=== PATIENT | male | born 1970 | race African-American/Black ===

== ENCOUNTER 2017-01-25 19:52 | Inpatient (IN) | payer OTHER ==
[2017-01-25 23:11] VITALS: BMI 39.5
--- NOTE | 2017-01-25 23:26 | HP ---
Admission ROS [facility] Chief Complaint: I WANT TO GO TO REHAB Allergies/Adverse Reactions: Allergies Allergy/AdvReac Type Severity Reaction Status Date / Time No Known Allergies Allergy Verified 01/28/12 15:56 History of Present Illness: 46 YEARS OLD MALE WITH LONG HISTORY OF ALCOHOL NICOTINE DEPENDENCE HAS HYPERTENSION AND ASTHMA DENIES MENTAL ILLNESS IS ADMITTED TO REHAB Exam Limitations: No Limitations - Ebola screening Have you traveled outside of the country in the last 21 days: No Have you had contact with anyone from an Ebola affected area: No Have you been sick,other than usual withdrawal symptoms: No Do you have a fever: No - Review of Systems Constitutional: Weight Stable EENT: reports: No Symptoms Reported Respiratory: reports: Cough Cardiac: reports: No Symptoms Reported GI: reports: No Symptoms Reported : reports: No Symptoms Reported Musculoskeletal: reports: No Symptoms Reported Integumentary: reports: No Symptoms Reported Neuro: reports: No Symptoms reported Endocrine: reports: No Symptoms Reported Hematology: reports: No Symptoms Reported Psychiatric: reports: Judgement Intact, Mood/Affect Appropiate, Orientated x3 Other Systems: Reviewed and Negative Patient History - Patient Medical History Hx Anemia: No Hx Asthma: Yes (on medication) Hx Chronic Obstructive Pulmonary Disease (COPD): No Hx Cancer: No Hx Cardiac Disorders: No Hx Congestive Heart Failure: No Hx Hypertension: No Hx Hypercholesterolemia: No Hx Pacemaker: No HX Cerebrovascular Accident: No Hx Seizures: No Hx Dementia: No Hx Diabetes: No Hx Gastrointestinal Disorders: No (gerd) Hx Liver Disease: No Hx Genitourinary Disorders: No Hx Sexually Transmitted Disorders: No Hx Renal Disease (ESRD): No Hx Thyroid Disease: No Hx Human Immunodeficiency Virus (HIV): No Hx Hepatitis C: No Hx Depression: No (no med) Hx Suicide Attempt: No Hx Bipolar Disorder: No Hx Schizophrenia: No - Patient Surgical History Past Surgical History: No - PPD History Previous Implant?: Yes Documented Results: Negative w/proof Implanted On Prior [facility] Admission?: Yes Date: 01/30/12 - Smoking Cessation Smoking history: Current every day smoker Have you smoked in the past 12 months: Yes Aproximately how many cigarettes per day: 7 Cigars Per Day: 0 Hx Chewing Tobacco Use: No Initiated information on smoking cessation: Yes 'Breaking Loose' booklet given: 01/25/17 - Substance & Tx. History Hx Alcohol Use: Yes Hx Substance Use: No Substance Use Type: Alcohol Hx Substance Use Treatment: Yes (01/18/17 [facility]) - Substances Abused Alcohol Route: Oral Frequency: Daily Amount used: [id number] Age of first use: 12 Date of Last Use: 01/18/17 Family Disease History - Family Disease History Family Disease History: Heart Disease: Father, Mother Other Family History: ONLY CHILD Admission Physical Exam [facility] - Vital Signs Vital Signs: Vital Signs - 24 hr 01/25/17 23:09 Temperature 97.4 F L Pulse Rate 102 H Respiratory 18 Rate Blood Pressure 152/108 - Physical General Appearance: Yes: No Apparent Distress, Appropriately Dressed, Obese HEENTM: Yes: Hearing grossly Normal, Normal ENT Inspection, Normocephalic, Normal Voice Respiratory: Yes: Chest Non-Tender, Lungs Clear, Normal Breath Sounds, No Respiratory Distress, No Accessory Muscle Use Neck: Yes: Supple, Trachea in good position Breast: Yes: Breasts Symetrical Cardiology: Yes: Regular Rhythm, S1, S2, Tachycardia Abdominal: Yes: Normal Bowel Sounds, Non Tender, Soft Genitourinary: Yes: Within Normal Limits Back: Yes: Normal Inspection Musculoskeletal: Yes: full range of Motion, Gait Steady Extremities: Yes: Normal Inspection, Normal Range of Motion, Non-Tender Neurological: Yes: Fully Oriented, Alert, Motor Strength 5/5, Normal Mood/Affect , Normal Response Integumentary: Yes: Normal Color, Warm Lymphatic: Yes: Within Normal Limits - Diagnostic (1) Asthma Current Visit: Yes Status: Chronic (2) Alcohol dependence with uncomplicated withdrawal Current Visit: Yes Status: Acute (3) Hypertension Current Visit: Yes Status: Chronic Qualifiers: Hypertension type: essential hypertension Qualified Code(s): I10 - Essential (primary) hypertension; I10 - Essential (primary) hypertension; I10 - Essential (primary) hypertension (4) Nicotine dependence Current Visit: Yes Status: Acute Qualifiers: Nicotine product type: cigarettes Substance use status: in withdrawal Qualified Code(s): F17.213 - Nicotine dependence, cigarettes, with withdrawal; F17.213 - Nicotine dependence, cigarettes, with withdrawal Cleared for Admission [facility] - Detox or Rehab [facility] Level of Care: Observation Bed Detox Regimen/Protocol: Not Applicable Claeared for Rehab Admission: Yes [facility] Breath Alcohol Content Breath Alcohol Content: 0 Urine Drug Screen - Results Drug Screen Negative: No Urine Drug Screen Results: BZO-Benzodiazepines Inpatient Rehab Admission - Initial Determination Are CD services needed?: Yes Free of communicable disease: Yes Not in need of hospitalization: Yes - Rehab Admission Criteria Previous failed treatment: Yes Poor recovery environment: Yes Comorbidities: Yes Lacks judgement: No Patient is meeting Inpatient Rehab admission criteria:: Yes
[2017-01-25] MEDS ORDERED: LOPERAMIDE HCL 2 MG CAPSULE PO PRN (23:44)
[2017-01-25] MEDS ORDERED: IBUPROFEN 400 MG TABLET (FP) PO PRN (23:44)
[2017-01-25] MEDS ORDERED: MENTHOL/PHENOL 1 EACH UD MM PRN (23:44)
[2017-01-25] MEDS ORDERED: MAGNESIUM HYDROX 2400MG/30ML ORAL SUSPENSION 30 ML CUP PO PRN (23:44)
[2017-01-25] MEDS ORDERED: NICOTINE POLACRILEX 2 MG GUM BC PRN (23:44)
[2017-01-25] MEDS ORDERED: ACETAMINOPHEN 325 MG TABLET (FP) PO PRN (23:44)
[2017-01-25] MEDS ORDERED: MAG HYDROX/AL HYDROX/SIMETH 30 ML UNIT-DOSE CUP PO PRN (23:44)
[2017-01-25] MEDS ORDERED: P-EPHED 60MG/TRIPROLIDI 2.5MG TABLET PO PRN (23:44)
[2017-01-25] MEDS ORDERED: MAGNESIUM CITRATE 300 ML BOTTLE PO PRN (23:44)
[2017-01-26] MEDS ORDERED: amLODIPine BESYLATE 10 MG TABLET (FP) PO ONE (02:01)
[2017-01-26] MEDS ORDERED: TUBERCULIN PPD 5 TU/0.1ML VIAL ID ONE (02:08)
[2017-01-26] MEDS: guaiFENesin/D-METHORPHAN HB 10 ML UNIT-DOSE CUPS PO PRN ×2 (02:32→21:17)
[2017-01-26] MEDS: PRENATAL VITAMINS W/ FOLIC ACID TABLET (FP) PO SCH (09:44)
[2017-01-26] MEDS: NICOTINE 14 MG/24 HOURS TOPICAL PATCH TD SCH (09:45)
[2017-01-26] MEDS ORDERED: HYDROCHLOROTHIAZIDE 12.5 MG CAPSULE (FP) PO SCH (11:07)
[2017-01-26] MEDS: HYDROCHLOROTHIAZIDE 25 MG TABLET (FP) PO SCH (11:16)
--- NOTE | 2017-01-26 11:27 | HP ---
Psychiatrist Admission - Data Date of interview: 01/26/17 Admission source: [facility] Identifying data: THis is the second [facility] inpatient rehabilitation admission for this 46 year old AA male, who is single father of one, unemployed on SSI, he is domiciled, residing in the [place] alone. Medical History: HTN, acid reflux and asthma. Smokes cigarettes 3 a day. Psychiatric History: Patient reports distant history of depression related to the deathes in the family, reports he visited ER at [facility] and was there 2 days, discharged and continued a therapy for a short period of time , currently reports he feels well, not depressed, not suicidal. Physical/Sexual Abuse/Trauma History: Denies history of sexual, physical and verbal abuse. Vital Signs: Vital Signs - 24 hr 01/25/17 01/26/17 01/26/17 23:09 03:36 07:13 Temperature 97.4 F L 98.1 F Pulse Rate 102 H 96 H Respiratory 18 18 20 Rate Blood Pressure 152/108 136/82 Allergies/Adverse Reactions: Allergies Allergy/AdvReac Type Severity Reaction Status Date / Time No Known Allergies Allergy Verified 01/28/12 15:56 Date of last physical exam: 01/25/17 Concur with the findings of this exam: Yes - Substance Abuse/Tx History Hx Alcohol Use: Yes (beer daily 3 40 oz , 2 pints of vodak) Hx Substance Use: Yes Substance Use Type: Heroin (5-6 bgas ) Hx Substance Use Treatment: Yes Mental Status Exam - Mental Status Exam Alert and Oriented to: Time, Place, Person Cognitive Function: Good Patient Appearance: Well Groomed Affect: Appropriate, Mood Congruent, Normal Range Patient Behavior: Appropriate, Cooperative Speech Pattern: Clear, Appropriate Voice Loudness: Normal Thought Process: Goal Oriented Thought Disorder: Not Present Hallucinations: Denies Suicidal Ideation: Denies Homicidal Ideation: Denies Insight/Judgement: Fair Sleep: Fair Appetite: Fair Muscle strength/Tone: Normal Gait/Station: Normal Psychiatric Findings - Problem List ([place] 1, 2,3) (1) Nicotine dependence Current Visit: Yes Status: Acute Qualifiers: Nicotine product type: cigarettes Substance use status: in withdrawal Qualified Code(s): F17.213 - Nicotine dependence, cigarettes, with withdrawal; F17.213 - Nicotine dependence, cigarettes, with withdrawal (2) Asthma Current Visit: Yes Status: Chronic (3) Alcohol dependence Current Visit: No Status: Active (4) gerd Current Visit: No Status: Active (5) heroin abused Current Visit: No Status: Active - Initial Treatment Plan Initial Treatment Plan: will monitor progress as needed.
[2017-01-26 12:33] LABS: ALK PHOS 86 U/L (45-117); ANION GAP 5 (8-16); BILIRUBIN,TOTAL 0.4 mg/dL (0.2-1.0); CALCIUM 8.2 mg/dL (8.5-10.1); CO2 29 mmol/L (21-32); CREATININE 1.1 mg/dL (0.7-1.3); GLUCOSE,RANDOM 106 mg/dL (74-106); SGOT/AST 60 U/L (15-37); SGPT/ALT 82 U/L (12-78); TOT PROT 7.4 g/dl (6.4-8.2)
[2017-01-26 12:39] LABS: MCH 28.3 pg (25.7-33.7); MCHC 32.6 g/dl (32.0-35.9); MEAN CELL VOLUME 86.7 fl (80-96); MEAN PLT VOLUME 11.5 fl (7.5-11.1); PLATELET COUNT 138 K/MM3 (134-434); RDW 14.3 % (11.9-15.9); WHITE BLOOD COUNT 7.1 K/mm3 (4.0-10.0)
[2017-01-26] MEDS: diphenhydrAMINE HCL 50 MG CAPSULE PO PRN (21:16)
[2017-01-26] MEDS: THIAMINE HCL 100 MG TABLET (FP) PO SCH (21:16)
[2017-01-27] MEDS ORDERED: HYDROCHLOROTHIAZIDE 12.5 MG CAPSULE (FP) PO SCH (10:00)
[2017-01-27] MEDS: NICOTINE 14 MG/24 HOURS TOPICAL PATCH TD SCH (10:10)
[2017-01-27] MEDS: PRENATAL VITAMINS W/ FOLIC ACID TABLET (FP) PO SCH (10:10)
[2017-01-27] MEDS: amLODIPine BESYLATE 10 MG TABLET (FP) PO SCH (10:10)
[2017-01-27] MEDS: HYDROCHLOROTHIAZIDE 25 MG TABLET (FP) PO SCH (10:10)
[2017-01-27] MEDS: guaiFENesin/D-METHORPHAN HB 10 ML UNIT-DOSE CUPS PO PRN ×2 (10:11→21:14)
--- NOTE | 2017-01-27 11:57 | EKG ---
Test Reason : Blood Pressure : / mmHG Vent. Rate : 076 BPM Atrial Rate : 076 BPM P-R Int : 164 ms QRS Dur : 092 ms QT Int : 388 ms P-R-T Axes : 031 015 014 degrees QTc Int : 436 ms SINUS RHYTHM WITH FREQUENT PREMATURE VENTRICULAR COMPLEXES OTHERWISE NORMAL ECG WHEN COMPARED WITH ECG OF 26-JAN-2017 01:13, NO SIGNIFICANT CHANGE WAS FOUND Confirmed by MALDONADO THOMAS, MANISH ([id number]) on 01/27/2017 11:56:45 AM Referred By: Joseph CRISTOBAL Confirmed By:MANISH OKEEFE MD
--- NOTE | 2017-01-27 11:59 | EKG ---
Test Reason : Blood Pressure : / mmHG Vent. Rate : 076 BPM Atrial Rate : 076 BPM P-R Int : 174 ms QRS Dur : 088 ms QT Int : 372 ms P-R-T Axes : 026 026 019 degrees QTc Int : 418 ms SINUS RHYTHM WITH OCCASIONAL PREMATURE VENTRICULAR COMPLEXES OTHERWISE NORMAL ECG NO PREVIOUS ECGS AVAILABLE Confirmed by MALDONADO THOMAS, MANISH ([id number]) on 01/27/2017 11:58:59 AM Referred By: Confirmed By:MANISH OKEEFE MD
[2017-01-27 14:05] LABS: URINE APPEARANCE CLEAR; URINE BILIRUBIN NEGATIVE (NEGATIVE); URINE BLOOD NEGATIVE (NEGATIVE); URINE COLOR LTYELLOW; URINE GLUCOSE (UA) NEGATIVE (NEGATIVE); URINE KETONE NEGATIVE (NEGATIVE); URINE NITRITE NEGATIVE (NEGATIVE); URINE PROTEIN NEGATIVE (NEGATIVE); URINE UROBILINOGEN NEGATIVE mg/dL (0.2-1.0)
[2017-01-27 17:49] LABS: URINE LEUK ESTERASE Negative (NEGATIVE)
[2017-01-27] MEDS: THIAMINE HCL 100 MG TABLET (FP) PO SCH (21:14)
[2017-01-27] MEDS: diphenhydrAMINE HCL 50 MG CAPSULE PO PRN (21:14)
[2017-01-28] MEDS: amLODIPine BESYLATE 10 MG TABLET (FP) PO SCH (09:36)
[2017-01-28] MEDS: HYDROCHLOROTHIAZIDE 25 MG TABLET (FP) PO SCH (09:36)
[2017-01-28] MEDS: PRENATAL VITAMINS W/ FOLIC ACID TABLET (FP) PO SCH (09:36)
[2017-01-28] MEDS: NICOTINE 14 MG/24 HOURS TOPICAL PATCH TD SCH (09:37)
[2017-01-28] MEDS: guaiFENesin/D-METHORPHAN HB 10 ML UNIT-DOSE CUPS PO PRN (09:37)
[2017-01-28] MEDS: THIAMINE HCL 100 MG TABLET (FP) PO SCH (21:16)
[2017-01-28] MEDS: diphenhydrAMINE HCL 50 MG CAPSULE PO PRN (21:17)
[2017-01-29] MEDS: amLODIPine BESYLATE 10 MG TABLET (FP) PO SCH (10:10)
[2017-01-29] MEDS: PRENATAL VITAMINS W/ FOLIC ACID TABLET (FP) PO SCH (10:10)
[2017-01-29] MEDS: HYDROCHLOROTHIAZIDE 25 MG TABLET (FP) PO SCH (10:10)
[2017-01-29] MEDS: NICOTINE 14 MG/24 HOURS TOPICAL PATCH TD SCH (10:12)
[2017-01-29] MEDS: guaiFENesin/D-METHORPHAN HB 10 ML UNIT-DOSE CUPS PO PRN (10:12)
[2017-01-29] MEDS: ALBUTEROL SO4 18 GM HFA INHALER IH PRN (13:44)
[2017-01-29] MEDS: THIAMINE HCL 100 MG TABLET (FP) PO SCH (21:21)
[2017-01-29] MEDS: diphenhydrAMINE HCL 50 MG CAPSULE PO PRN (21:22)
[2017-01-30] MEDS: NICOTINE 14 MG/24 HOURS TOPICAL PATCH TD SCH (09:47)
[2017-01-30] MEDS: amLODIPine BESYLATE 10 MG TABLET (FP) PO SCH (09:47)
[2017-01-30] MEDS: PRENATAL VITAMINS W/ FOLIC ACID TABLET (FP) PO SCH (09:47)
[2017-01-30] MEDS: HYDROCHLOROTHIAZIDE 25 MG TABLET (FP) PO SCH (09:48)
[2017-01-30] MEDS: guaiFENesin/D-METHORPHAN HB 10 ML UNIT-DOSE CUPS PO PRN ×2 (09:49→21:22)
[2017-01-30] MEDS: diphenhydrAMINE HCL 50 MG CAPSULE PO PRN (21:21)
[2017-01-30] MEDS: THIAMINE HCL 100 MG TABLET (FP) PO SCH (21:21)
[2017-01-31] MEDS: PRENATAL VITAMINS W/ FOLIC ACID TABLET (FP) PO SCH (10:10)
[2017-01-31] MEDS: NICOTINE 14 MG/24 HOURS TOPICAL PATCH TD SCH (10:10)
[2017-01-31] MEDS: HYDROCHLOROTHIAZIDE 25 MG TABLET (FP) PO SCH (10:10)
[2017-01-31] MEDS: amLODIPine BESYLATE 10 MG TABLET (FP) PO SCH (10:10)
[2017-01-31] MEDS: ALBUTEROL SO4 18 GM HFA INHALER IH PRN (18:10)
[2017-01-31] MEDS: THIAMINE HCL 100 MG TABLET (FP) PO SCH (21:15)
[2017-01-31] MEDS: diphenhydrAMINE HCL 50 MG CAPSULE PO PRN (21:15)
[2017-02-01] MEDS: amLODIPine BESYLATE 10 MG TABLET (FP) PO SCH (10:03)
[2017-02-01] MEDS: PRENATAL VITAMINS W/ FOLIC ACID TABLET (FP) PO SCH (10:03)
[2017-02-01] MEDS: HYDROCHLOROTHIAZIDE 25 MG TABLET (FP) PO SCH (10:03)
[2017-02-01] MEDS: NICOTINE 14 MG/24 HOURS TOPICAL PATCH TD SCH (10:03)
[2017-02-01] MEDS: diphenhydrAMINE HCL 50 MG CAPSULE PO PRN (21:13)
[2017-02-01] MEDS: THIAMINE HCL 100 MG TABLET (FP) PO SCH (21:13)
[2017-02-02] MEDS: amLODIPine BESYLATE 10 MG TABLET (FP) PO SCH (10:12)
[2017-02-02] MEDS: PRENATAL VITAMINS W/ FOLIC ACID TABLET (FP) PO SCH (10:12)
[2017-02-02] MEDS: HYDROCHLOROTHIAZIDE 25 MG TABLET (FP) PO SCH (10:12)
[2017-02-02] MEDS: NICOTINE 14 MG/24 HOURS TOPICAL PATCH TD SCH (10:13)
[2017-02-02] MEDS: diphenhydrAMINE HCL 50 MG CAPSULE PO PRN (21:16)
[2017-02-02] MEDS: THIAMINE HCL 100 MG TABLET (FP) PO SCH (21:16)
[2017-02-03 06:56] VITALS: TEMP 97.8
[2017-02-03] MEDS: PRENATAL VITAMINS W/ FOLIC ACID TABLET (FP) PO SCH (10:05)
[2017-02-03] MEDS: amLODIPine BESYLATE 10 MG TABLET (FP) PO SCH (10:05)
[2017-02-03] MEDS: HYDROCHLOROTHIAZIDE 25 MG TABLET (FP) PO SCH (10:06)
[2017-02-03] MEDS: NICOTINE 14 MG/24 HOURS TOPICAL PATCH TD SCH (10:06)
[2017-02-03] MEDS: diphenhydrAMINE HCL 50 MG CAPSULE PO PRN (21:24)
[2017-02-03] MEDS: THIAMINE HCL 100 MG TABLET (FP) PO SCH (21:24)
[2017-02-04 06:44] VITALS: BP 131/92; PULSE 68
--- NOTE | 2017-02-04 09:09 | PN ---
Psychiatric Progress Note Vital Signs: Vital Signs Period Temp Pulse Resp BP Sys/Ventura Pulse Ox Last 24 Hr 97.8 F 68-80 18-18 131-144/80-92 Date of Session: 02/04/17 Chief Complaint:: discharge visit HPI: Patient addressed alcohol, nicotine , opioid use. ROS: HTN, asthma, and acid reflux medically managed. Current Medications: Active Medications Generic Name Dose Route Start Last Admin Trade Name Freq PRN Reason Stop Dose Admin Acetaminophen 650 mg 01/25/17 23:44 Tylenol - PO Q4H PRN PAIN Al Hydroxide/Mg Hydroxide 30 ml 01/25/17 23:44 01/28/17 07:51 Mylanta Oral Suspension - PO 30 ml Q6H PRN Administration DYSPEPSIA Albuterol Sulfate 2 puff 01/25/17 23:45 01/31/17 18:10 Ventolin Hfa Inhaler - IH 2 puff Q4H PRN Administration SHORT OF BREATH/WHEEZING Amlodipine Besylate 10 mg 01/26/17 10:00 02/03/17 10:05 Norvasc - PO 10 mg DAILY FRAN Administration Diphenhydramine HCl 50 mg 01/25/17 23:44 02/03/17 21:24 Benadryl - PO 50 mg HSMR1 PRN Administration INSOMNIA Eucalyptus/Menthol/Phenol/Sorbitol 1 each 01/25/17 23:44 01/26/17 02:32 Cepastat Lozenge - MM 1 each Q4H PRN Administration SORE THROAT Guaifenesin 10 ml 01/25/17 23:44 01/30/17 21:22 Robitussin Dm - PO 10 ml Q6H PRN Administration COUGH Hydrochlorothiazide 25 mg 01/26/17 11:15 02/03/17 10:06 Hctz - PO 25 mg DAILY FRAN Administration Loperamide HCl 4 mg 01/25/17 23:44 Imodium - PO Q6H PRN DIARRHEA Magnesium Citrate 300 ml 01/25/17 23:44 Citroma - PO Q48H PRN CONSTIPATION Magnesium Hydroxide 30 ml 01/25/17 23:44 Milk Of Magnesia - PO DAILY PRN CONSTIPATION Nicotine 14 mg 01/26/17 10:00 02/03/17 10:06 Nicoderm Patch - TD Not Given DAILY FRAN Nicotine Polacrilex 2 mg 01/25/17 23:44 Nicorette Gum - BC Q2H PRN NICOTINE REPLACEMENT RX Multivit/Folic Acid/Iron 1 tab 01/26/17 10:00 02/03/17 10:05 Vitamins ([facility]) - PO 1 tab DAILY FRAN Administration Pseudoephedrine/Triprolidine 1 combo 01/25/17 23:44 Actifed - PO TID PRN NASAL CONGESTION Thiamine HCl 100 mg 01/26/17 22:00 02/03/17 21:24 Vitamin B1 - PO 100 mg HS FRAN Administration Current Side Effect: No Lab tests ordered: No Lab tests reviewed: Yes Provider note:: Patient requested to be discharged today for personal reasons, he completed 9 days, will continue address his issues at the next level of cars. PAtient was encouraged to continue maintain abstinence and utilize all supports available to prevent relapses. Patient is atble for discharge today.MSE completed. Total face to face time:: 25 Mental Status Exam - Mental Status Exam Alert and Oriented to: Time, Place, Person Cognitive Function: Good Patient Appearance: Well Groomed Mood: Hopeful Affect: Appropriate, Mood Congruent Patient Behavior: Appropriate, Cooperative Speech Pattern: Clear, Appropriate Voice Loudness: Normal, Mildly Loud Thought Process: Intact, Goal Oriented Thought Disorder: Not Present Hallucinations: Denies Suicidal Ideation: Denies Homicidal Ideation: Denies Insight/Judgement: Fair Sleep: Fair Appetite: Good Muscle strength/Tone: Normal Gait/Station: Normal Psychiatric Treatment Plan - Problem List (1) Nicotine dependence Current Visit: Yes Qualifiers: Nicotine product type: cigarettes Substance use status: in withdrawal Qualified Code(s): F17.213 - Nicotine dependence, cigarettes, with withdrawal; F17.213 - Nicotine dependence, cigarettes, with withdrawal (2) Asthma Current Visit: Yes (3) Alcohol dependence Current Visit: No (4) gerd Current Visit: No (5) heroin abused Current Visit: No
[2017-02-04] MEDS: PRENATAL VITAMINS W/ FOLIC ACID TABLET (FP) PO SCH (10:00)
[2017-02-04] MEDS: amLODIPine BESYLATE 10 MG TABLET (FP) PO SCH (10:00)
[2017-02-04] MEDS: HYDROCHLOROTHIAZIDE 25 MG TABLET (FP) PO SCH (10:01)
[2017-02-04] MEDS: NICOTINE 14 MG/24 HOURS TOPICAL PATCH TD SCH (10:01)
== END 2017-02-04 10:50 | disposition home or self-care (01) | DRG 772 ==
LOC: YASAS 19:52 → Y5N 23:23
PROVIDERS: ADMIT Psychiatry & Neurology Psychiatry; ATTEND Psychiatry & Neurology Psychiatry
PROC: HZ42ZZZ Group Counseling for Substance Abuse Treatment, Cognitive-Behavioral (ICD-10-PCS; principal; 2017-01-25)
DX: F10.20 Alcohol dependence, uncomplicated (principal); F11.10 Opioid abuse, uncomplicated; F17.213 Nicotine dependence, cigarettes, with withdrawal; J45.909 Unspecified asthma, uncomplicated; I10 Essential (primary) hypertension; K21.9 Gastro-esophageal reflux disease without esophagitis; E66.9 Obesity, unspecified; Z68.39 Body mass index [BMI] 39.0-39.9, adult; R00.0 Tachycardia, unspecified
CPT/HCPCS: 36415; 80053; 81003; 85027; 86593; 93005; 93010

== ENCOUNTER 2017-12-21 08:47 | Inpatient (IN) | payer OTHER ==
[2017-12-21 10:12] VITALS: BMI 33.0
--- NOTE | 2017-12-21 18:35 | HP ---
Admission [facility] Chief Complaint: alcohol and marijuana rehabilitation Allergies/Adverse Reactions: Allergies Allergy/AdvReac Type Severity Reaction Status Date / Time No Known Allergies Allergy Verified 12/21/17 11:05 History of Present Illness: 47 years old male with long history of alcohol, nicotine, and alcohol dependence is here for rehabilitation. Last detox [facility] 12/15/17 - . pMHX: HTN , asthma, chronic tonsilitis. Denies suicidal / homicidal ideation. Exam Limitations: No Limitations - Ebola screening Have you traveled outside of the country in the last 21 days: No Have you had contact with anyone from an Ebola affected area: No Have you been sick,other than usual withdrawal symptoms: No Do you have a fever: No - Review of Systems Constitutional: Changes in sleep EENT: reports: Nose Congestion Respiratory: reports: No Symptoms reported Cardiac: reports: No Symptoms Reported GI: reports: Diarrhea, Poor Appetite, Poor Fluid Intake, Abdominal cramping : reports: No Symptoms Reported Musculoskeletal: reports: No Symptoms Reported Integumentary: reports: No Symptoms Reported Neuro: reports: Headache, Dizziness Endocrine: reports: No Symptoms Reported Hematology: reports: No Symptoms Reported Psychiatric: reports: Orientated x3 Other Systems: Reviewed and Negative Patient History - Patient Medical History Hx Anemia: No Hx Asthma: Yes Hx Chronic Obstructive Pulmonary Disease (COPD): No Hx Cancer: No Hx Cardiac Disorders: No Hx Congestive Heart Failure: No Hx Hypertension: Yes Hx Hypercholesterolemia: No Hx Pacemaker: No HX Cerebrovascular Accident: No Hx Seizures: No Hx Dementia: No Hx Diabetes: No Hx Gastrointestinal Disorders: No Hx Liver Disease: No Hx Genitourinary Disorders: No Hx Sexually Transmitted Disorders: No Hx Renal Disease (ESRD): No Hx Thyroid Disease: No Hx Human Immunodeficiency Virus (HIV): No Hx Hepatitis C: No Hx Depression: Yes Hx Suicide Attempt: No Hx Bipolar Disorder: No Hx Schizophrenia: No - Patient Surgical History Past Surgical History: No Hx Neurologic Surgery: No Hx Cataract Extraction: No Hx Cardiac Surgery: No Hx Lung Surgery: No Hx Breast Surgery: No Hx Breast Biopsy: No Hx Abdominal Surgery: No Hx Appendectomy: No Hx Cholecystectomy: No Hx Genitourinary Surgery: No Hx Section: No Hx Orthopedic Surgery: No Anesthesia Reaction: No - PPD History Previous Implant?: Yes Implanted On Prior [facility] Admission?: Yes Date: 01/28/17 Results: 0 mm PPD to be Administered?: No - Smoking Cessation Smoking history: Current every day smoker Have you smoked in the past 12 months: Yes Aproximately how many cigarettes per day: 7 Cigars Per Day: 0 Hx Chewing Tobacco Use: No Initiated information on smoking cessation: Yes 'Breaking Loose' booklet given: 12/21/17 - Substance & Tx. History Hx Alcohol Use: Yes Hx Substance Use: Yes Substance Use Type: Alcohol, Heroin Hx Substance Use Treatment: Yes - Substances Abused Heroin Route: Inhalation Frequency: Daily Amount used: 8 bags Age of first use: 22 Date of Last Use: 12/13/17 Alcohol-vodka Route: Oral Frequency: Daily Amount used: 4 pts. Age of first use: 11 Date of Last Use: 12/15/17 Marijuana Route: Smoking Frequency: 1-2 times per week Amount used: $10 Age of first use: 22 Date of Last Use: 12/15/17 Family Disease History - Family Disease History Family Disease History: Heart Disease: Father, Mother Admission [facility] - Vital Signs Vital Signs: Vital Signs - 24 hr 12/21/17 10:09 Temperature 97.9 F Pulse Rate 89 Respiratory 18 Rate Blood Pressure 116/90 - Physical General Appearance: Yes: Nourished, Appropriately Dressed, Anxious HEENTM: Yes: EOMI, Hearing grossly Normal, Normal ENT Inspection, Normocephalic , Normal Voice, ALEJANDRO, Pharynx Normal, Tm's normal Respiratory: Yes: Within Normal Limits Neck: Yes: Within Normal Limits Breast: Yes: Breast Exam Deferred Cardiology: Yes: Regular Rhythm, Regular Rate Abdominal: Yes: Normal Bowel Sounds, Non Tender, Flat, Soft Genitourinary: Yes: Within Normal Limits Back: Yes: Normal Inspection Musculoskeletal: Yes: Within Normal Limits Extremities: Yes: Within Normal Limits Neurological: Yes: scene painter II-XII NML intact, Fully Oriented, Alert, Motor Strength 5/5, Normal Response Integumentary: Yes: Normal Color, Dry, Warm Lymphatic: Yes: Within Normal Limits - Diagnostic (1) Pharyngitis Current Visit: Yes Status: Acute Qualifiers: Pharyngitis/tonsillitis etiology: unspecified etiology Qualified Code(s): J02.9 - Acute pharyngitis, unspecified (2) Marijuana dependence Current Visit: Yes Status: Acute (3) Alcohol dependence Current Visit: Yes Status: Active (4) gerd Current Visit: Yes Status: Chronic (5) Nicotine dependence Current Visit: Yes Status: Acute Qualifiers: Nicotine product type: cigarettes Substance use status: in withdrawal Qualified Code(s): F17.213 - Nicotine dependence, cigarettes, with withdrawal (6) Asthma Current Visit: Yes Status: Chronic (7) Hypertension Current Visit: Yes Status: Chronic Qualifiers: Hypertension type: essential hypertension Qualified Code(s): I10 - Essential (primary) hypertension [facility] Breath Alcohol Content Breath Alcohol Content: 0 Urine Drug Screen - Results Drug Screen Negative: No Urine Drug Screen Results: THC-Marijuana, BZO-Benzodiazepines Inpatient Rehab Admission - Initial Determination Are CD services needed?: Yes Free of communicable disease: Yes Not in need of hospitalization: Yes - Rehab Admission Criteria Previous failed treatment: Yes Poor recovery environment: Yes Comorbidities: Yes Lacks judgement: Yes Patient is meeting Inpatient Rehab admission criteria:: Yes
[2017-12-21] MEDS ORDERED: ALBUTEROL SO4 8 GM HFA INHALER IH PRN (18:38)
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
[2017-12-22] MEDS ORDERED: IBUPROFEN 400 MG TABLET (FP) PO PRN (06:39)
[2017-12-22] MEDS ORDERED: MAGNESIUM CITRATE 300 ML BOTTLE PO PRN (06:39)
[2017-12-22] MEDS ORDERED: MENTHOL/PHENOL 1 EACH UD MM PRN (06:39)
[2017-12-22] MEDS ORDERED: ACETAMINOPHEN 325 MG TABLET (FP) PO PRN (06:39)
[2017-12-22] MEDS ORDERED: LOPERAMIDE HCL 2 MG CAPSULE PO PRN (06:39)
[2017-12-22] MEDS ORDERED: P-EPHED 60MG/TRIPROLIDI 2.5MG TABLET PO PRN (06:39)
[2017-12-22] MEDS ORDERED: NICOTINE POLACRILEX 2 MG GUM BUC PRN (06:39)
[2017-12-22] MEDS ORDERED: guaiFENesin/D-METHORPHAN HB 10 ML UNIT-DOSE CUPS PO PRN (06:39)
[2017-12-22] MEDS ORDERED: MAGNESIUM HYDROX 2400MG/30ML ORAL SUSPENSION 30 ML CUP PO PRN (06:39)
[2017-12-22] MEDS ORDERED: MAG HYDROX/AL HYDROX/SIMETH 30 ML UNIT-DOSE CUP PO PRN (06:39)
[2017-12-22] MEDS: PRENATAL VITAMINS W/ FOLIC ACID TABLET (FP) PO SCH (10:20)
[2017-12-22] MEDS: NICOTINE 14 MG/24 HOURS TOPICAL PATCH TD SCH (10:20)
[2017-12-22] MEDS: LISINOPRIL 20 MG TABLET (FP) PO SCH (10:21)
[2017-12-22] MEDS: PATIENT'S OWN MEDICATION (NON-FORMULARY) (Penicillin V Potassium [Pen Vee K -] 500 MG) PO SCH ×3 (10:40→21:33)
[2017-12-22] MEDS ORDERED: MELATONIN 5 MG TABLETS PO PRN ×2 (14:21→22:00)
[2017-12-22] MEDS ORDERED: PT OWN MED DRAWER 7, Y5N ONE (21:36)
[2017-12-22] MEDS ORDERED: THIAMINE HCL 100 MG TABLET (FP) PO SCH (22:00)
[2017-12-23 07:09] VITALS: TEMP 97.9
[2017-12-23] MEDS: PRENATAL VITAMINS W/ FOLIC ACID TABLET (FP) PO SCH (10:10)
[2017-12-23] MEDS: PATIENT'S OWN MEDICATION (NON-FORMULARY) (Penicillin V Potassium [Pen Vee K -] 500 MG) PO SCH (10:10)
[2017-12-23] MEDS: NICOTINE 14 MG/24 HOURS TOPICAL PATCH TD SCH (10:10)
[2017-12-23] MEDS: LISINOPRIL 20 MG TABLET (FP) PO SCH (10:10)
[2017-12-23 10:56] VITALS: BP 134/87; PULSE 75
== END 2017-12-23 13:07 | disposition left against medical advice (07) | DRG 770 ==
LOC: YASAS 08:47 → Y3W 17:34
PROVIDERS: ADMIT Psychiatry & Neurology Psychiatry; ATTEND Psychiatry & Neurology Psychiatry
PROC: HZ42ZZZ Group Counseling for Substance Abuse Treatment, Cognitive-Behavioral (ICD-10-PCS; principal; 2017-12-21)
DX: F11.20 Opioid dependence, uncomplicated (principal); F10.20 Alcohol dependence, uncomplicated; F12.20 Cannabis dependence, uncomplicated; F17.213 Nicotine dependence, cigarettes, with withdrawal; F43.10 Post-traumatic stress disorder, unspecified; F19.282 Other psychoactive substance dependence with psychoactive substance-induced sleep disorder; F32.9 Major depressive disorder, single episode, unspecified; I10 Essential (primary) hypertension; K21.9 Gastro-esophageal reflux disease without esophagitis; J45.909 Unspecified asthma, uncomplicated; J02.9 Acute pharyngitis, unspecified

== ENCOUNTER 2018-05-20 08:07 | Inpatient (IN) | payer OTHER ==
[2018-05-20 08:49] VITALS: BMI 30.2
--- NOTE | 2018-05-20 08:56 | HP ---
CIWA Score Nausea/Vomitin Muscle Tremors: 2 Anxiety: 2 Agitation: 2 Paroxysmal Sweats: 1-Minimal Palms Moist Orientation: 0-Oriented Tacttile Disturbances: 1-Very Mild Itch/Numbness Auditory Disturbances: 1-Very Mild Visual Disturbances: 0-None Headache: 2-Mild CIWA-Ar Total Score: 13 - Admission Criteria OASAS Guidelines: Admission for Medically Managed Detox: Requires at least one of the followin. CIWA greater than 12 2. Seizures within the past 24 hours 3. Delirium tremens within the past 24 hours 4. Hallucinations within the past 24 hours 5. Acute intervention needed for co occurring medical disorder 6. Acute intervention needed for co occurring psychiatric disorder 7. Severe withdrawal that cannot be handled at a lower level of care (continued vomiting, continued diarrhea, abnormal vital signs) requiring intravenous medication and/or fluids 8. Patient presents the following: CIWA greater than 12 Admission Criteria Met: Admission criteria met Admission ROS BHS - HPI Chief Complaint: i need help to stop drinking alcohol,marijuana,heroin Allergies/Adverse Reactions: Allergies Allergy/AdvReac Type Severity Reaction Status Date / Time No Known Allergies Allergy Verified 12/21/17 11:05 History of Present Illness: this 47 years old male with alcohol,marijuana,hroin abused,seeking detox, withdrawal symptom,last detox 12/15/17 to 12/19/17 completed rehab 12/21/17 to 12/23/17 syncope last 05/20/18 hypertension non compliance nicotine dependence longest period of sobriety 4 years asthma - Ebola screening Have you traveled outside of the country in the last 21 days: No Have you had contact with anyone from an Ebola affected area: No Do you have a fever: No - Review of Systems Constitutional: Loss of Appetite, Malaise, Night Sweats, Changes in sleep, Weakness EENT: reports: Nose Congestion Respiratory: reports: No Symptoms reported Cardiac: reports: No Symptoms Reported GI: reports: Nausea, Poor Appetite, Abdominal cramping : reports: No Symptoms Reported Musculoskeletal: reports: Back Pain, Muscle Pain Integumentary: reports: Dryness Neuro: reports: Headache, Tremors Endocrine: reports: No Symptoms Reported Hematology: reports: No Symptoms Reported Psychiatric: reports: No Sypmtoms Reported Other Systems: Reviewed and Negative Patient History - Patient Medical History Hx Anemia: No Hx Asthma: Yes (on albuterol inhaler) Hx Chronic Obstructive Pulmonary Disease (COPD): No Hx Cancer: No Hx Cardiac Disorders: No Hx Congestive Heart Failure: No Hx Hypertension: Yes (non comliance) Hx Hypercholesterolemia: No Hx Pacemaker: No HX Cerebrovascular Accident: No Hx Seizures: No Hx Dementia: No Hx Diabetes: No Hx Gastrointestinal Disorders: No Hx Liver Disease: No Hx Genitourinary Disorders: No Hx Sexually Transmitted Disorders: No Hx Renal Disease (ESRD): No Hx Thyroid Disease: No Hx Human Immunodeficiency Virus (HIV): No (2018 negative) Hx Hepatitis C: No Hx Depression: Yes (no med) Hx Suicide Attempt: No Hx Bipolar Disorder: No Hx Schizophrenia: No Other Medical History: no suicidal,no homicidal - Patient Surgical History Past Surgical History: No Hx Neurologic Surgery: No Hx Cataract Extraction: No Hx Cardiac Surgery: No Hx Lung Surgery: No Hx Breast Surgery: No Hx Breast Biopsy: No Hx Abdominal Surgery: No Hx Appendectomy: No Hx Cholecystectomy: No Hx Genitourinary Surgery: No Hx Section: No Hx Orthopedic Surgery: Yes (traumatic amputation of right index in 1982) Anesthesia Reaction: No - PPD History Previous Implant?: Yes Documented Results: Negative w/o proof Implanted On Prior [facility] Admission?: Yes Date: 01/28/17 Results: 0 mm PPD to be Administered?: Yes - Smoking Cessation Smoking history: Current every day smoker Have you smoked in the past 12 months: Yes Aproximately how many cigarettes per day: 7 Cigars Per Day: 0 Hx Chewing Tobacco Use: No Initiated information on smoking cessation: Yes 'Breaking Loose' booklet given: 05/20/18 - Substance & Tx. History Hx Alcohol Use: Yes Hx Substance Use: Yes Substance Use Type: Alcohol, Heroin, Marijuana Hx Substance Use Treatment: Yes ([facility] 12/15/17 to 12/19/17 detox ,rehab ) Family Disease History - Family Disease History Family Disease History: Heart Disease: Father, Mother Admission Physical Exam BHS - Vital Signs Vital Signs: Vital Signs Temperature 98.6 F 05/20/18 08:47 Pulse Rate 79 05/20/18 08:47 Respiratory Rate 18 05/20/18 08:47 Blood Pressure 153/76 05/20/18 08:47 O2 Sat by Pulse Oximetry (%) - Physical General Appearance: Yes: Moderate Distress, Tremorous, Irritable, Sweating, Anxious HEENTM: Yes: Normal ENT Inspection, ALEJANDRO, Pharynx Normal Respiratory: Yes: Lungs Clear, Normal Breath Sounds, No Respiratory Distress Neck: Yes: Within Normal Limits, Supple, Trachea in good position Breast: Yes: Within Normal Limits Cardiology: Yes: Within Normal Limits, Regular Rhythm, Regular Rate, S1, S2 Abdominal: Yes: Within Normal Limits, Normal Bowel Sounds, Non Tender, Soft Genitourinary: Yes: Within Normal Limits Back: Yes: Muscle Spasm Extremities: Yes: Tremors 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, Fully Oriented, Alert, Motor Strength 5/5 (traumatic amputation of right index) Integumentary: Yes: Dry Lymphatic: Yes: Within Normal Limits - Diagnostic (1) Alcohol dependence with uncomplicated withdrawal Current Visit: No Status: Acute (2) Marijuana dependence Current Visit: No Status: Acute (3) Heroin abuse Current Visit: Yes Status: Acute (4) Nicotine dependence Current Visit: No Status: Chronic Qualifiers: Nicotine product type: cigarettes Substance use status: in withdrawal Qualified Code(s): F17.213 - Nicotine dependence, cigarettes, with withdrawal (5) Amputation of right index finger Current Visit: Yes Status: Acute (6) Asthma Current Visit: Yes Status: Acute Cleared for Admission BHS - Detox or Rehab [facility] Level of Care: Medically Managed Detox Regimen/Protocol: Librium S Breath Alcohol Content Breath Alcohol Content: 0 Inpatient Rehab Admission - Rehab Decision to Admit Inpatient rehab admission?: No
[2018-05-20] MEDS ORDERED: hydrOXYzine PAMOATE 25 MG CAPSULE (FP) PO PRN (09:10)
[2018-05-20] MEDS ORDERED: MAG HYDROX/AL HYDROX/SIMETH 30 ML UNIT-DOSE CUP PO PRN (09:10)
[2018-05-20] MEDS ORDERED: LOPERAMIDE HCL 2 MG CAPSULE PO PRN (09:10)
[2018-05-20] MEDS ORDERED: MAGNESIUM CITRATE 300 ML BOTTLE PO PRN (09:10)
[2018-05-20] MEDS ORDERED: P-EPHED 60MG/TRIPROLIDI 2.5MG TABLET PO PRN (09:10)
[2018-05-20] MEDS ORDERED: guaiFENesin/D-METHORPHAN HB 10 ML UNIT-DOSE CUPS PO PRN (09:10)
[2018-05-20] MEDS ORDERED: MENTHOL/PHENOL 1 EACH UD MM PRN (09:10)
[2018-05-20] MEDS ORDERED: MAGNESIUM HYDROX 2400MG/30ML ORAL SUSPENSION 30 ML CUP PO PRN (09:10)
[2018-05-20] MEDS ORDERED: chlordiazePOXIDE HCL 25 MG CAPSULE PO PRN (09:10)
[2018-05-20] MEDS ORDERED: ACETAMINOPHEN 325 MG TABLET (FP) PO PRN (09:10)
[2018-05-20] MEDS ORDERED: IBUPROFEN 400 MG TABLET (FP) PO PRN (09:10)
[2018-05-20] MEDS ORDERED: ALBUTEROL SO4 8 GM HFA INHALER IH PRN (10:17)
[2018-05-20] MEDS: NICOTINE 21 MG/24 HOURS TOPICAL PATCH TD SCH (11:24)
[2018-05-20] MEDS: chlordiazePOXIDE HCL 25 MG CAPSULE PO SCH ×3 (11:24→22:48)
[2018-05-20] MEDS: PRENATAL VITAMINS W/ FOLIC ACID TABLET (FP) PO SCH (11:24)
[2018-05-20] MEDS ORDERED: MELATONIN 5 MG TABLETS PO PRN (22:00)
[2018-05-20] MEDS: THIAMINE HCL 100 MG TABLET (FP) PO SCH (22:48)
[2018-05-21] MEDS: chlordiazePOXIDE HCL 25 MG CAPSULE PO SCH ×4 (05:33→23:49)
[2018-05-21] MEDS ORDERED: hydrOXYzine PAMOATE 50 MG CAPSULE (FP) PO PRN (09:16)
[2018-05-21] MEDS ORDERED: cloNIDine HCL 0.1 MG TABLET PO PRN (09:16)
--- NOTE | 2018-05-21 09:20 | PN ---
[facility] CIWA - CIWA Score Nausea/Vomitin Muscle Tremors: 2 Anxiety: 3 Agitation: 2 Paroxysmal Sweats: 2 Orientation: 0-Oriented Tacttile Disturbances: 0-None Auditory Disturbances: 0-None Visual Disturbances: 0-None Headache: 1-Very Mild CIWA-Ar Total Score: 12 BHS COWS - Scale Resting Pulse: 0= [place] 80 or Below Sweatin= Chills/Flushing Restless Observation: 1= Difficult to Sit Still Pupil Size: 1= Pupils >than Normal Bone or Joint Aches: 2= Severe Diffuse Aches Runny Nose/ Eye Tearin= Nasal Congestion GI Upset > 30mins: 1= Stomach Cramp Tremor Observation of Outstretched Hands: 1= Tremor [place], Not Seen Yawning Observation: 0= None Anxiety or Irritability: 1=Feels Anxious/Irritable Goose Flesh Skin: 3=Piloerection COWS Score: 12 S Progress Note (SOAP) Subjective: pt states feels like he is in withdrawal- came in yesterday for both heroin and alcohol withdrawal O: Vital Signs - 24 hr 05/20/18 05/20/18 05/20/18 14:02 16:51 21:36 Temperature 98.1 F 98.2 F 97.7 F Pulse Rate 94 H 88 110 H Respiratory 18 18 18 Rate Blood Pressure 126/71 129/74 140/94 05/21/18 05/21/18 05/21/18 00:30 03:30 06:00 Temperature 97.2 F L Pulse Rate 60 Respiratory 18 18 18 Rate Blood Pressure 121/75 a/p: continue alcohol and heroin withdrawal: clonidine and vistaril prn for withdrawal, prn valium for withdrawal: d/w pt that he can ask for these meds as needed labs pending
[2018-05-21] MEDS ORDERED: LISINOPRIL 20 MG TABLET (FP) PO SCH (10:00)
[2018-05-21] MEDS: PRENATAL VITAMINS W/ FOLIC ACID TABLET (FP) PO SCH (10:43)
[2018-05-21] MEDS: NICOTINE 21 MG/24 HOURS TOPICAL PATCH TD SCH (10:43)
[2018-05-21 11:26] LABS: ALBUMIN 2.8 g/dl (3.4-5.0); ALK PHOS 75 U/L (45-117); ANION GAP 4 MMOL/L (8-16); BILIRUBIN,TOTAL 0.2 mg/dL (0.2-1); BLOOD UREA NITROGEN 16 mg/dL (7-18); CALCIUM 8.3 mg/dL (8.5-10.1); CHLORIDE 107 mmol/L (98-107); CO2 28 mmol/L (21-32); GLUCOSE,RANDOM 70 mg/dL (74-106); POTASSIUM 4.2 mmol/L (3.5-5.1); SGOT/AST 65 U/L (15-37); SGPT/ALT 133 U/L (13-61); SODIUM 139 mmol/L (136-145); TOT PROT 7.1 g/dl (6.4-8.2)
[2018-05-21 11:59] LABS: HEMATOCRIT 37.2 % (35.4-49); HEMOGLOBIN 12.4 GM/dL (11.7-16.9); MCH 29.4 pg (25.7-33.7); MCHC 33.2 g/dl (32.0-35.9); MEAN CELL VOLUME 88.5 fl (80-96); MEAN PLT VOLUME 10.7 fl (7.5-11.1); PLATELET COUNT 152 K/MM3 (134-434); RBC 4.21 M/mm3 (4.00-5.60); RDW 14.5 % (11.9-15.9)
[2018-05-21 12:00] LABS: URINE APPEARANCE CLEAR; URINE BILIRUBIN NEGATIVE (<2.0 mg/dL); URINE COLOR LTYELLOW; URINE GLUCOSE (UA) NEGATIVE (NEGATIVE); URINE KETONE NEGATIVE (NEGATIVE); URINE LEUK ESTERASE NEGATIVE (NEGATIVE); URINE NITRITE NEGATIVE (NEGATIVE); URINE PROTEIN NEGATIVE (NEGATIVE); URINE UROBILINOGEN NEGATIVE mg/dL (0.2-1.0)
[2018-05-21] MEDS: THIAMINE HCL 100 MG TABLET (FP) PO SCH (23:49)
[2018-05-22] MEDS: chlordiazePOXIDE HCL 25 MG CAPSULE PO SCH (06:24)
[2018-05-22 09:12] VITALS: BP 127/70; PULSE 65; TEMP 98.3
[2018-05-22] MEDS ORDERED: chlordiazePOXIDE 5 MG CAPSULE PO SCH (11:00)
--- NOTE | 2018-05-22 12:41 | DS ---
[facility] Detox Discharge Summary Admission Date: 05/20/18 Discharge Date: 05/22/18 - History Present History: Alcohol Dependence, Cannabis Dependence, Opioid Dependence Additional Comments: Patient demanded to leave AMA despite encouragement from director underwriter sales, counselor and staff to complete detox. As per patient, he has family meeting to take care of and that he is feeling fine and has to leave today. Patient is A/A/Ox3, in nad, vss, ambulatory freely. Patient instructed to call 911 if any withdrawal symptoms or feeling sick and to see his PCP within 3 days. Patient verbalized understanding. Pertinent Past History: Asthma HTN Obesity Nicotine dependence - Physical Exam Results Vital Signs: Vital Signs Temperature 98.3 F 05/22/18 09:12 Pulse Rate 65 05/22/18 09:12 Respiratory Rate 18 05/22/18 09:12 Blood Pressure 127/70 05/22/18 09:12 O2 Sat by Pulse Oximetry (%) Pertinent Admission Physical Exam Findings: Withdrawal symptoms Laboratory Tests 05/21/18 05/21/18 05/21/18 07:40 07:40 07:40 WBC 5.0 RBC 4.21 Hgb 12.4 Hct 37.2 MCV 88.5 MCH 29.4 MCHC 33.2 RDW 14.5 Plt Count 152 MPV 10.7 Sodium 139 Potassium 4.2 Chloride 107 Carbon Dioxide 28 Anion Gap 4 L BUN 16 Creatinine 1.0 Creat Clearance w eGFR > 60 Random Glucose 70 L Calcium 8.3 L Total Bilirubin 0.2 AST 65 H ALT 133 H Alkaline Phosphatase 75 Total Protein 7.1 Albumin 2.8 L Urine Color Urine Appearance Urine pH Ur Specific [place] Urine Protein Urine Glucose (UA) Urine Ketones Urine Blood Urine Nitrite Urine Bilirubin Urine Urobilinogen Ur Leukocyte Esterase RPR Titer Nonreactive 05/21/18 08:50 WBC RBC Hgb Hct MCV MCH MCHC RDW Plt Count MPV Sodium Potassium Chloride Carbon Dioxide Anion Gap BUN Creatinine Creat Clearance w eGFR Random Glucose Calcium Total Bilirubin AST ALT Alkaline Phosphatase Total Protein Albumin Urine Color Ltyellow Urine Appearance Clear Urine pH 6.0 Ur Specific [place] 1.011 Urine Protein Negative Urine Glucose (UA) Negative Urine Ketones Negative Urine Blood Negative Urine Nitrite Negative Urine Bilirubin Negative Urine Urobilinogen Negative Ur Leukocyte Esterase Negative RPR Titer Labs reviewed - Medication Discharge Medications: Ambulatory Orders Albuterol Sulfate Inhaler - [Ventolin HFA Inhaler -] 2 inh IH Q4H PRN #1 inhaler 12/19/17 Lisinopril [Prinivil] 20 mg PO DAILY #30 tablet 12/19/17 Acetaminophen [Tylenol] 650 mg PO Q6H PRN 12/21/17 Multivitamins [Tab-A-Vit -] 1 tab PO DAILY 12/21/17 Albuterol Sulfate Inhaler - [Ventolin HFA Inhaler -] 2 puff IH Q4H PRN #1 inhaler 12/23/17 Lisinopril [Prinivil] 20 mg PO DAILY #30 tablet 12/23/17 - Diagnosis (1) Obesity (BMI 30.0-34.9) Status: Chronic (2) Alcohol dependence with uncomplicated withdrawal Status: Acute (3) Asthma Status: Chronic (4) Cannabis dependence Status: Chronic (5) Heroin abuse Status: Chronic (6) Hypertension Status: Chronic Qualifiers: Hypertension type: essential hypertension Qualified Code(s): I10 - Essential (primary) hypertension (7) Nicotine dependence Status: Chronic Qualifiers: Nicotine product type: cigarettes Substance use status: in withdrawal Qualified Code(s): F17.213 - Nicotine dependence, cigarettes, with withdrawal (8) depression Status: Chronic - AMA Did Patient Leave Against Medical Advice: Yes (Instructed to call 911 [place] if feeling sick or withdrawal symptoms)
[2018-05-23] MEDS ORDERED: chlordiazePOXIDE HCL 10 MG CAPSULE PO SCH (11:00)
== END 2018-05-22 09:40 | disposition left against medical advice (07) | DRG 770 ==
LOC: YASAS 08:07 → Y6N 09:42
PROVIDERS: ADMIT Surgery; ATTEND Surgery
PROC: HZ2ZZZZ Detoxification Services for Substance Abuse Treatment (ICD-10-PCS; principal; 2018-05-20)
DX: F10.230 Alcohol dependence with withdrawal, uncomplicated (principal); F12.20 Cannabis dependence, uncomplicated; F11.10 Opioid abuse, uncomplicated; F17.213 Nicotine dependence, cigarettes, with withdrawal; F32.9 Major depressive disorder, single episode, unspecified; I10 Essential (primary) hypertension; J45.909 Unspecified asthma, uncomplicated; E66.9 Obesity, unspecified; Z68.30 Body mass index [BMI] 30.0-30.9, adult; Z89.021 Acquired absence of right finger(s)
CPT/HCPCS: 36415; 80053; 81003; 85027; 86593

== ENCOUNTER 2018-06-10 08:07 | Inpatient (IN) | payer OTHER ==
[2018-06-10 10:24] VITALS: BMI 31.9
--- NOTE | 2018-06-10 11:48 | HP ---
CIWA Score Nausea/Vomitin Muscle Tremors: 2 Anxiety: 2 Agitation: 2 Paroxysmal Sweats: 1-Minimal Palms Moist Orientation: 0-Oriented Tacttile Disturbances: 1-Very Mild Itch/Numbness Auditory Disturbances: 1-Very Mild Visual Disturbances: 0-None Headache: 2-Mild CIWA-Ar Total Score: 13 - Admission Criteria OASAS Guidelines: Admission for Medically Managed Detox: Requires at least one of the followin. CIWA greater than 12 2. Seizures within the past 24 hours 3. Delirium tremens within the past 24 hours 4. Hallucinations within the past 24 hours 5. Acute intervention needed for co occurring medical disorder 6. Acute intervention needed for co occurring psychiatric disorder 7. Severe withdrawal that cannot be handled at a lower level of care (continued vomiting, continued diarrhea, abnormal vital signs) requiring intravenous medication and/or fluids 8. Patient presents the following: CIWA greater than 12 Admission Criteria Met: Admission criteria met Admission ROS S - HPI Chief Complaint: i need help to stop drinking alcohol,marijuana and heroin abused Allergies/Adverse Reactions: Allergies Allergy/AdvReac Type Severity Reaction Status Date / Time No Known Allergies Allergy Verified 06/10/18 11:25 History of Present Illness: this 47 years old male with alcohol dependence also marijuana and heroin abused, seeking detox,withdrawal symptom, multiple admissions in the past,non compliance issue,last treatment [facility] to 05/22/18 syncope alcohol related history of hypertension on medication asthma on albuterol inhaler nicotine dependence 7 cigarette /day history of depression,no medication traumatic amputation of right index 20 years ago in longest period of sobriety 4 years Exam Limitations: No Limitations - Ebola screening Have you traveled outside of the country in the last 21 days: No Have you had contact with anyone from an Ebola affected area: No Have you been sick,other than usual withdrawal symptoms: No Do you have a fever: No - Review of Systems Constitutional: Loss of Appetite, Malaise, Night Sweats, Changes in sleep, Unintentional Wgt. Loss EENT: reports: Tearing, Nose Congestion Respiratory: reports: No Symptoms reported, Other (asthma on albuterol inhaler) Cardiac: reports: No Symptoms Reported GI: reports: Nausea, Poor Appetite, Abdominal cramping : reports: No Symptoms Reported Musculoskeletal: reports: Back Pain, Muscle Pain, Other (traumatic amputation of right index finger) Integumentary: reports: Dryness Neuro: reports: Headache, Tremors Endocrine: reports: No Symptoms Reported Hematology: reports: No Symptoms Reported Psychiatric: reports: No Sypmtoms Reported, Judgement Intact, Mood/Affect Appropiate, Orientated x3, Depressed, other Other Systems: Reviewed and Negative Patient History - Patient Medical History Hx Anemia: No Hx Asthma: Yes (on albuterol inhaler) Hx Chronic Obstructive Pulmonary Disease (COPD): No Hx Cancer: No Hx Cardiac Disorders: No Hx Congestive Heart Failure: No Hx Hypertension: Yes (non comliance) Hx Hypercholesterolemia: No Hx Pacemaker: No HX Cerebrovascular Accident: No Hx Seizures: No Hx Dementia: No Hx Diabetes: No Hx Gastrointestinal Disorders: No Hx Liver Disease: No Hx Genitourinary Disorders: No Hx Sexually Transmitted Disorders: No Hx Renal Disease (ESRD): No Hx Thyroid Disease: No Hx Human Immunodeficiency Virus (HIV): No (2018 negative) Hx Hepatitis C: No Hx Depression: Yes (no med) Hx Suicide Attempt: No Hx Bipolar Disorder: No Hx Schizophrenia: No Other Medical History: no suicidal,no homicidal - Patient Surgical History Past Surgical History: No Hx Neurologic Surgery: No Hx Cataract Extraction: No Hx Cardiac Surgery: No Hx Lung Surgery: No Hx Breast Surgery: No Hx Breast Biopsy: No Hx Abdominal Surgery: No Hx Appendectomy: No Hx Cholecystectomy: No Hx Genitourinary Surgery: No Hx Section: No Hx Orthopedic Surgery: Yes (traumatic amputation of right index in 1982) Anesthesia Reaction: No - PPD History Previous Implant?: Yes Documented Results: Negative w/proof Implanted On Prior [facility] Admission?: Yes Date: 05/22/18 Results: 0 mm PPD to be Administered?: No - Smoking Cessation Smoking history: Current every day smoker Have you smoked in the past 12 months: Yes Aproximately how many cigarettes per day: 7 Cigars Per Day: 0 Hx Chewing Tobacco Use: No Initiated information on smoking cessation: Yes 'Breaking Loose' booklet given: 06/10/18 - Substance & Tx. History Hx Alcohol Use: Yes Hx Substance Use: Yes Substance Use Type: Alcohol, Heroin, Marijuana Hx Substance Use Treatment: Yes ([facility] 05/20/18 to 05/22/18) - Substances Abused Heroin Route: Inhalation Frequency: 1-2 times per week Amount used: 3 bags Age of first use: 22 Date of Last Use: 06/08/18 Alcohol-beer/vodka Route: Oral Frequency: Daily Amount used: 3 (24 oz.)/2 pts. Age of first use: 11 Date of Last Use: 06/10/18 Marijuana Route: Smoking Frequency: 1-2 times per week Amount used: 2 blunts Age of first use: 22 Date of Last Use: 06/09/18 Family Disease History - Family Disease History Family Disease History: Heart Disease: Father (alcohol,sober), Mother Admission Physical Exam [facility] - Vital Signs Vital Signs: Vital Signs - 24 hr 06/10/18 10:22 Temperature 97.1 F L Pulse Rate 80 Respiratory 20 Rate Blood Pressure 127/60 - Physical General Appearance: Yes: Moderate Distress, Tremorous, Irritable, Sweating, Anxious HEENTM: Yes: ALEJANDRO, Pharynx Normal Respiratory: Yes: Lungs Clear, Normal Breath Sounds, No Respiratory Distress Neck: Yes: Within Normal Limits, Supple, Trachea in good position Breast: Yes: Within Normal Limits Cardiology: Yes: Within Normal Limits, Regular Rhythm, Regular Rate, S1, S2 Abdominal: Yes: Within Normal Limits, Normal Bowel Sounds, Non Tender, Soft Genitourinary: Yes: Within Normal Limits Back: Yes: Muscle Spasm Musculoskeletal: Yes: full range of Motion, Back pain, Muscle Pain Extremities: Yes: Within Normal Limits, Normal Range of Motion, Tremors, Amputation (traumatic amputation of right index finger) 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, Fully Oriented, Alert, Motor Strength 5/5 Integumentary: Yes: Dry Lymphatic: Yes: Within Normal Limits - Diagnostic (1) Alcohol dependence with uncomplicated withdrawal Current Visit: No Status: Acute (2) Amputation of right index finger Current Visit: No Status: Acute (3) Marijuana dependence Current Visit: No Status: Acute (4) Asthma Current Visit: No Status: Chronic (5) Heroin abuse Current Visit: No Status: Chronic (6) Hypertension Current Visit: No Status: Chronic Qualifiers: Hypertension type: essential hypertension Qualified Code(s): I10 - Essential (primary) hypertension (7) Nicotine dependence Current Visit: No Status: Chronic Qualifiers: Nicotine product type: cigarettes Substance use status: in withdrawal Qualified Code(s): F17.213 - Nicotine dependence, cigarettes, with withdrawal (8) gerd Current Visit: No Status: Chronic (9) Depression Current Visit: Yes Status: Acute Cleared for Admission [facility] - Detox or Rehab [facility] Level of Care: Medically Managed Detox Regimen/Protocol: Librium [facility] Breath Alcohol Content Breath Alcohol Content: 0.049 Urine Drug Screen - Results Drug Screen Negative: No Urine Drug Screen Results: THC-Marijuana, BZO-Benzodiazepines Inpatient Rehab Admission - Rehab Decision to Admit Inpatient rehab admission?: No
[2018-06-10] MEDS ORDERED: MAGNESIUM HYDROX 2400MG/30ML ORAL SUSPENSION 30 ML CUP PO PRN (11:57)
[2018-06-10] MEDS ORDERED: LOPERAMIDE HCL 2 MG CAPSULE PO PRN (11:57)
[2018-06-10] MEDS ORDERED: P-EPHED 60MG/TRIPROLIDI 2.5MG TABLET PO PRN (11:57)
[2018-06-10] MEDS ORDERED: hydrOXYzine PAMOATE 50 MG CAPSULE (FP) PO PRN (11:57)
[2018-06-10] MEDS ORDERED: MENTHOL/PHENOL 1 EACH UD MM PRN (11:57)
[2018-06-10] MEDS ORDERED: guaiFENesin/D-METHORPHAN HB 10 ML UNIT-DOSE CUPS PO PRN (11:57)
[2018-06-10] MEDS ORDERED: chlordiazePOXIDE HCL 25 MG CAPSULE PO PRN (11:57)
[2018-06-10] MEDS ORDERED: ACETAMINOPHEN 325 MG TABLET (FP) PO PRN (11:57)
[2018-06-10] MEDS ORDERED: MAG HYDROX/AL HYDROX/SIMETH 30 ML UNIT-DOSE CUP PO PRN (11:57)
[2018-06-10] MEDS ORDERED: IBUPROFEN 400 MG TABLET (FP) PO PRN (11:57)
[2018-06-10] MEDS ORDERED: MAGNESIUM CITRATE 300 ML BOTTLE PO PRN (11:57)
[2018-06-10] MEDS ORDERED: ALBUTEROL SO4 8 GM HFA INHALER IH PRN (12:00)
[2018-06-10] MEDS: NICOTINE 21 MG/24 HOURS TOPICAL PATCH TD SCH (13:40)
[2018-06-10] MEDS: chlordiazePOXIDE HCL 25 MG CAPSULE PO SCH ×2 (17:20→22:32)
[2018-06-10] MEDS ORDERED: MELATONIN 5 MG TABLETS PO PRN (22:00)
[2018-06-10] MEDS: THIAMINE HCL 100 MG TABLET (FP) PO SCH (22:32)
[2018-06-10 23:18] LABS: URINE APPEARANCE TURBID; URINE BILIRUBIN NEGATIVE (<2.0 mg/dL); URINE COLOR YELLOW; URINE GLUCOSE (UA) NEGATIVE (NEGATIVE); URINE KETONE NEGATIVE (NEGATIVE); URINE LEUK ESTERASE NEGATIVE (NEGATIVE); URINE NITRITE NEGATIVE (NEGATIVE); URINE PROTEIN NEGATIVE (NEGATIVE)
[2018-06-10 23:19] LABS: URINE BACTERIA RARE /hpf (NONE SEEN); URINE MUCUS RARE
[2018-06-11] MEDS: chlordiazePOXIDE HCL 25 MG CAPSULE PO SCH ×4 (06:52→22:29)
[2018-06-11] MEDS ORDERED: PATIENT'S OWN MEDICATION (NON-FORMULARY) (Lisinopril/Hydrochlorothiazide [Lisinopril-Hctz PO SCH (10:00)
[2018-06-11] MEDS ORDERED: LISINOPRIL 20 MG TABLET (FP) PO SCH (10:00)
[2018-06-11] MEDS ORDERED: HYDROCHLOROTHIAZIDE 12.5 MG CAPSULE (FP) PO SCH (10:00)
[2018-06-11] MEDS ORDERED: PRENATAL VITAMINS W/ FOLIC ACID TABLET (FP) PO SCH (10:00)
[2018-06-11 10:45] LABS: ALBUMIN 3.5 g/dl (3.4-5.0); ALK PHOS 80 U/L (45-117); ANION GAP 9 MMOL/L (8-16); BILIRUBIN,TOTAL 0.7 mg/dL (0.2-1); BLOOD UREA NITROGEN 22 mg/dL (7-18); CALCIUM 9.1 mg/dL (8.5-10.1); CHLORIDE 107 mmol/L (98-107); CO2 22 mmol/L (21-32); CREATININE 1.3 mg/dL (0.55-1.3); GLUCOSE,RANDOM 87 mg/dL (74-106); POTASSIUM 3.8 mmol/L (3.5-5.1); SGOT/AST 57 U/L (15-37); SGPT/ALT 68 U/L (13-61); SODIUM 139 mmol/L (136-145); TOT PROT 8.4 g/dl (6.4-8.2)
[2018-06-11] MEDS ORDERED: CYCLOBENZAPRINE HCL 10 MG TABLET (FP) PO PRN (10:45)
[2018-06-11 10:49] LABS: MCH 30.6 pg (25.7-33.7); MCHC 34.2 g/dl (32.0-35.9); MEAN CELL VOLUME 89.5 fl (80-96); MEAN PLT VOLUME 12.6 fl (7.5-11.1); PLATELET COUNT 140 K/MM3 (134-434); RBC 4.25 M/mm3 (4.00-5.60); RDW 14.9 % (11.9-15.9); WHITE BLOOD COUNT 6.9 K/mm3 (4.0-10.0)
[2018-06-11] MEDS: NICOTINE 21 MG/24 HOURS TOPICAL PATCH TD SCH (10:49)
[2018-06-11] MEDS: METHYL SALICYLATE/MENTHOL OINT 30 GM TUBE TP SCH ×2 (14:15→22:41)
--- NOTE | 2018-06-11 14:54 | PN ---
S CIWA - CIWA Score Nausea/Vomitin Muscle Tremors: None Anxiety: 3 Agitation: 3 Paroxysmal Sweats: 2 Orientation: 0-Oriented Tacttile Disturbances: 3-Moderate Itch/Numb/Burn Auditory Disturbances: 0-None Visual Disturbances: 0-None Headache: 0-None Present CIWA-Ar Total Score: 14 BHS Progress Note (SOAP) Subjective: Nausea, Stomach Cramping, Body Aches, Constipation. Objective: PATIENT A & O X 3, OBSERVED AMBULATING ON UNIT. IN NO ACUTE DISTRESS. 06/11/18 14:55 Vital Signs Temperature 97.7 F 06/11/18 14:02 Pulse Rate 71 06/11/18 14:02 Respiratory Rate 18 06/11/18 14:02 Blood Pressure 108/70 06/11/18 14:02 O2 Sat by Pulse Oximetry (%) Laboratory Tests 06/10/18 06/11/18 06/11/18 14:00 06:00 06:00 WBC 6.9 RBC 4.25 Hgb 13.0 Hct 38.0 MCV 89.5 MCH 30.6 MCHC 34.2 RDW 14.9 Plt Count 140 MPV 12.6 H D Sodium 139 Potassium 3.8 Chloride 107 Carbon Dioxide 22 Anion Gap 9 BUN 22 H Creatinine 1.3 Creat Clearance w eGFR 58.67 Random Glucose 87 Calcium 9.1 Total Bilirubin 0.7 AST 57 H ALT 68 H Alkaline Phosphatase 80 Total Protein 8.4 H Albumin 3.5 Urine Color Yellow Urine Appearance Turbid Urine pH 5.0 Ur Specific [place] 1.023 Urine Protein Negative Urine Glucose (UA) Negative Urine Ketones Negative Urine Blood 1+ H Urine Nitrite Negative Urine Bilirubin Negative Urine Urobilinogen 2.0 Ur Leukocyte Esterase Negative Urine WBC (Auto) 1 Urine RBC (Auto) <1 Urine Bacteria Rare Urine Mucus Rare RPR Titer 06/11/18 06:00 WBC RBC Hgb Hct MCV MCH MCHC RDW Plt Count MPV Sodium Potassium Chloride Carbon Dioxide Anion Gap BUN Creatinine Creat Clearance w eGFR Random Glucose Calcium Total Bilirubin AST ALT Alkaline Phosphatase Total Protein Albumin Urine Color Urine Appearance Urine pH Ur Specific [place] Urine Protein Urine Glucose (UA) Urine Ketones Urine Blood Urine Nitrite Urine Bilirubin Urine Urobilinogen Ur Leukocyte Esterase Urine WBC (Auto) Urine RBC (Auto) Urine Bacteria Urine Mucus RPR Titer Nonreactive LABS NOTED. Assessment: 03/02/19 14:55 WITHDRAWAL SYMPTOMS. Plan: CONTINUE DETOX. INCREASE DAILY PO FLUID INTAKE. PRN FLEXERIL PO FOR BODY / MUSCLE SPASMS.
[2018-06-11] MEDS: THIAMINE HCL 100 MG TABLET (FP) PO SCH (22:29)
[2018-06-12] MEDS: chlordiazePOXIDE HCL 25 MG CAPSULE PO SCH (05:34)
[2018-06-12 09:29] VITALS: BP 103/59; PULSE 57; TEMP 97.7
--- NOTE | 2018-06-12 16:03 | DS ---
[facility] Detox Discharge Summary Admission Date: 06/10/18 Discharge Date: 06/12/18 - History Present History: Alcohol Dependence Additional Comments: 47 years old male admitted on 06/10/18 for alcohol withdrawal stabilization ciwa = 9 today tremor restlessness anxiety sweating headaches patient stated that he is feeling better today, able to manage the alcohol withdrawal symptoms patient preferred begin chemical rehab today that he will seek medical services from [facility] where he always went Pertinent Past History: patient is alert no acute distress no suicidal ideation patient reported that he comes to patient [facility], [place] often and help him think things through patient has support personnel at home and community that he will utilize when return home keep medication list in wallet bring-in medication bottles and medication list to aftercare appointment important of medication adherence update medication list when change medication discuss cigarette cessation inform alcohol misuse related negative consequences such as liver insults in respect patients' preference and value treatment choice of the patient patient is been discharged to the community and the patient agrees to follow up with 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 at the [facility] - Physical Exam Results Vital Signs: Vital Signs Temperature 97.7 F 06/12/18 09:28 Pulse Rate 57 L 06/12/18 09:28 Respiratory Rate 18 06/12/18 09:28 Blood Pressure 103/59 L 06/12/18 09:28 O2 Sat by Pulse Oximetry (%) Pertinent Admission Physical Exam Findings: alcohol withdrawal sx Laboratory Last Values WBC 6.9 K/mm3 (4.0-10.0) 06/11/18 06:00 RBC 4.25 M/mm3 (4.00-5.60) 06/11/18 06:00 Hgb 13.0 GM/dL (11.7-16.9) 06/11/18 06:00 Hct 38.0 % (35.4-49) 06/11/18 06:00 MCV 89.5 fl (80-96) 06/11/18 06:00 MCH 30.6 pg (25.7-33.7) 06/11/18 06:00 MCHC 34.2 g/dl (32.0-35.9) 06/11/18 06:00 RDW 14.9 % (11.9-15.9) 06/11/18 06:00 Plt Count 140 K/MM3 (134-434) 06/11/18 06:00 MPV 12.6 fl (7.5-11.1) H D 06/11/18 06:00 Sodium 139 mmol/L (136-145) 06/11/18 06:00 Potassium 3.8 mmol/L (3.5-5.1) 06/11/18 06:00 Chloride 107 mmol/L (98-107) 06/11/18 06:00 Carbon Dioxide 22 mmol/L (21-32) 06/11/18 06:00 Anion Gap 9 MMOL/L (8-16) 06/11/18 06:00 BUN 22 mg/dL (7-18) H 06/11/18 06:00 Creatinine 1.3 mg/dL (0.55-1.3) 06/11/18 06:00 Creat Clearance w eGFR 58.67 (>60) 06/11/18 06:00 Random Glucose 87 mg/dL (74-106) 06/11/18 06:00 Calcium 9.1 mg/dL (8.5-10.1) 06/11/18 06:00 Total Bilirubin 0.7 mg/dL (0.2-1) 06/11/18 06:00 AST 57 U/L (15-37) H 06/11/18 06:00 ALT 68 U/L (13-61) H 06/11/18 06:00 Alkaline Phosphatase 80 U/L (45-117) 06/11/18 06:00 Total Protein 8.4 g/dl (6.4-8.2) H 06/11/18 06:00 Albumin 3.5 g/dl (3.4-5.0) 06/11/18 06:00 Urine Color Yellow 06/10/18 14:00 Urine Appearance Turbid 06/10/18 14:00 Urine pH 5.0 (5.0-8.0) 06/10/18 14:00 Ur Specific [place] 1.023 (1.010-1.035) 06/10/18 14:00 Urine Protein Negative (NEGATIVE) 06/10/18 14:00 Urine Glucose (UA) Negative (NEGATIVE) 06/10/18 14:00 Urine Ketones Negative (NEGATIVE) 06/10/18 14:00 Urine Blood 1+ (NEGATIVE) H 06/10/18 14:00 Urine Nitrite Negative (NEGATIVE) 06/10/18 14:00 Urine Bilirubin Negative (<2.0 mg/dL) 06/10/18 14:00 Urine Urobilinogen 2.0 mg/dL (0.2-1.0) 06/10/18 14:00 Ur Leukocyte Esterase Negative (NEGATIVE) 06/10/18 14:00 Urine WBC (Auto) 1 /hpf (3-5) 06/10/18 14:00 Urine RBC (Auto) <1 /hpf (0-3) 06/10/18 14:00 Urine Bacteria Rare /hpf (NONE SEEN) 06/10/18 14:00 Urine Mucus Rare 06/10/18 14:00 RPR Titer Nonreactive (NONREACTIVE) 06/11/18 06:00 lab noted - Treatment Hospital Course: Detox Protocol Followed, Detoxed Safely, Responded well, Discharged Condition Good, Rehab Referral Accepted Patient has Accepted a Rehab Referral to: [facility] services - Medication Discharge Medications: Ambulatory Orders Lisinopril/Hydrochlorothiazide [Lisinopril-Hctz 20-12.5 mg Tab] 1 each PO DAILY 06/10/18 Albuterol Sulfate Inhaler - [Ventolin HFA Inhaler -] 2 inh IH Q4H PRN #1 inhaler 06/12/18 - Diagnosis (1) Alcohol dependence with uncomplicated withdrawal Status: Acute (2) Asthma Status: Chronic (3) Hypertension Status: Chronic Qualifiers: Hypertension type: essential hypertension Qualified Code(s): I10 - Essential (primary) hypertension (4) Nicotine dependence Status: Acute Qualifiers: Nicotine product type: cigarettes Substance use status: in withdrawal Qualified Code(s): F17.213 - Nicotine dependence, cigarettes, with withdrawal (5) gerd Status: Chronic - AMA Did Patient Leave Against Medical Advice: No
[2018-06-12] MEDS ORDERED: chlordiazePOXIDE 5 MG CAPSULE PO SCH (17:00)
[2018-06-13] MEDS ORDERED: chlordiazePOXIDE HCL 10 MG CAPSULE PO SCH (17:00)
== END 2018-06-12 11:07 | disposition home or self-care (01) | DRG 773 ==
LOC: YASAS 08:07 → Y3N 11:57
PROVIDERS: ADMIT Surgery; ATTEND Surgery
PROC: HZ2ZZZZ Detoxification Services for Substance Abuse Treatment (ICD-10-PCS; principal; 2018-06-10)
DX: F10.230 Alcohol dependence with withdrawal, uncomplicated (principal); F12.20 Cannabis dependence, uncomplicated; F11.10 Opioid abuse, uncomplicated; F17.213 Nicotine dependence, cigarettes, with withdrawal; F32.9 Major depressive disorder, single episode, unspecified; J45.909 Unspecified asthma, uncomplicated; I10 Essential (primary) hypertension; K21.9 Gastro-esophageal reflux disease without esophagitis; Z89.021 Acquired absence of right finger(s); Z91.14 Patient's other noncompliance with medication regimen
CPT/HCPCS: 36415; 80053; 81003; 81015; 85027; 86593

== ENCOUNTER 2018-09-10 08:11 | Inpatient (IN) | payer OTHER ==
[2018-09-10 08:35] VITALS: BMI 33.9
--- NOTE | 2018-09-10 09:23 | HP ---
CIWA Score Nausea/Vomitin Muscle Tremors: 4-Moderate,w/Arms Extend Anxiety: 4-Mod. Anxious/Guarded Agitation: 0-Normal Activity Paroxysmal Sweats: No Perspiration Orientation: 1-Uncertain about Date Tacttile Disturbances: 0-None Auditory Disturbances: 1-Very Mild Visual Disturbances: 1-Very Mild Sensitivity Headache: 2-Mild CIWA-Ar Total Score: 15 - Admission Criteria OASAS Guidelines: Admission for Medically Managed Detox: Requires at least one of the followin. CIWA greater than 12 2. Seizures within the past 24 hours 3. Delirium tremens within the past 24 hours 4. Hallucinations within the past 24 hours 5. Acute intervention needed for co occurring medical disorder 6. Acute intervention needed for co occurring psychiatric disorder 7. Severe withdrawal that cannot be handled at a lower level of care (continued vomiting, continued diarrhea, abnormal vital signs) requiring intravenous medication and/or fluids 8. Patient presents the following: CIWA greater than 12 Admission Criteria Met: Admission criteria met Admission ROS S - [facility] Chief Complaint: I'm here to prevent myself from destroying myself totally - I don't want to do that, I want to be smart and not go off to the races again Allergies/Adverse Reactions: Allergies Allergy/AdvReac Type Severity Reaction Status Date / Time No Known Allergies Allergy Verified 09/10/18 08:25 History of Present Illness: 47 yo gentleman here for detox from alcohol. History of opiate use but none x 3 days and use is sporadic. This is one of several admissions for treatment. No seizures or overdose, denies black outs but does drink first thing in the morning. He is a [place]. Last here June 10, 2018. Patient is good candidate for Vivitrol upon discharge and then follow up with outpatient Vivitrol. Exam Limitations: No Limitations - Ebola screening Have you traveled outside of the country in the last 21 days: No (N) Have you had contact with anyone from an Ebola affected area: No Do you have a fever: No - Review of Systems Constitutional: Malaise, Changes in sleep, Weakness EENT: reports: Blurred Vision Respiratory: reports: No Symptoms reported Cardiac: reports: No Symptoms Reported GI: reports: Nausea, Indigestion, Abdominal cramping : reports: No Symptoms Reported Musculoskeletal: reports: No Symptoms Reported Integumentary: reports: No Symptoms Reported Neuro: reports: Headache, Tremors Endocrine: reports: No Symptoms Reported Hematology: reports: No Symptoms Reported Psychiatric: reports: Judgement Intact, Mood/Affect Appropiate, Orientated x3, Anxious, other (irritable) Other Systems: Reviewed and Negative Patient History - Patient Medical History Hx Anemia: No Hx Asthma: Yes (on albuterol inhaler) Hx Chronic Obstructive Pulmonary Disease (COPD): No Hx Cancer: No Hx Cardiac Disorders: No Hx Congestive Heart Failure: No Hx Hypertension: Yes Hx Hypercholesterolemia: No Hx Pacemaker: No HX Cerebrovascular Accident: No Hx Seizures: No Hx Dementia: No Hx Diabetes: No Hx Gastrointestinal Disorders: No Hx Liver Disease: No (elevated LFTs due to alcohol) Hx Genitourinary Disorders: No Hx Sexually Transmitted Disorders: No Hx Renal Disease (ESRD): No Hx Thyroid Disease: No Hx Human Immunodeficiency Virus (HIV): No (2018 negative) Hx Hepatitis C: No Hx Depression: Yes (no med, never hospitalized) Hx Suicide Attempt: No Hx Bipolar Disorder: No Hx Schizophrenia: No - Patient Surgical History Past Surgical History: No Hx Neurologic Surgery: No Hx Cataract Extraction: No Hx Cardiac Surgery: No Hx Lung Surgery: No Hx Breast Surgery: No Hx Breast Biopsy: No Hx Abdominal Surgery: No Hx Appendectomy: No Hx Cholecystectomy: No Hx Genitourinary Surgery: No Hx Section: No Hx Orthopedic Surgery: Yes (traumatic amputation of right index in 1982) Anesthesia Reaction: No - PPD History Previous Implant?: Yes Documented Results: Negative w/proof Implanted On Prior [facility] Admission?: Yes Date: 05/22/18 Results: 0 mm PPD to be Administered?: No - Reproductive History Patient is a Female of Child Bearing Age (11 -55 yrs old): No (male) - Smoking Cessation Smoking history: Current every day smoker Have you smoked in the past 12 months: Yes Aproximately how many cigarettes per day: 7 Cigars Per Day: 0 Hx Chewing Tobacco Use: No Initiated information on smoking cessation: Yes 'Breaking Loose' booklet given: 09/10/18 (give on floor) - Substance & Tx. History Hx Alcohol Use: Yes Hx Substance Use: Yes Substance Use Type: Alcohol Hx Substance Use Treatment: Yes (detox, rehab) - Substances abused Alcohol Substance route: Oral Frequency: Daily Amount used: 2 pints, 5 beers Age of first use: 12 Date of last use: 09/10/18 Heroin Substance route: Inhalation Frequency: 3-6 times per week Amount used: 2 bags Age of first use: 22 Date of last use: 09/08/18 Marijuana/Hashish Substance route: Smoking Frequency: 1-2 times per week Amount used: 1 blunt Age of first use: 22 Date of last use: 09/08/18 Family Disease History - Family Disease History Family Disease History: Heart Disease: Father (living, alcohol,sober), Mother ( living, htn, ), Other: Mother Admission Physical Exam [facility] - Vital Signs Vital Signs: Vital Signs - 24 hr 09/10/18 08:27 Temperature 97.3 F L Pulse Rate 87 Respiratory 18 Rate Blood Pressure 125/75 - Physical General Appearance: Yes: Nourished, Appropriately Dressed, Moderate Distress, Tremorous, Irritable, Anxious HEENTM: Yes: EOMI, Hearing grossly Normal, Normocephalic, Normal Voice, Pharynx Normal Respiratory: Yes: Normal Breath Sounds, No Respiratory Distress Neck: Yes: No masses,lesions,Nodules, Supple Breast: Yes: Breast Exam Deferred Cardiology: Yes: Regular Rhythm, Regular Rate Abdominal: Yes: Soft Genitourinary: Yes: Frequency Back: Yes: Normal Inspection Musculoskeletal: Yes: full range of Motion, Gait Steady Extremities: Yes: Normal Range of Motion, Other (right index finger amputation ( healed)) Neurological: Yes: Fully Oriented, Alert, Normal Mood/Affect, Normal Response Integumentary: Yes: Normal Color, Dry, Warm Lymphatic: Yes: Within Normal Limits - Diagnostic (1) Alcohol dependence with uncomplicated withdrawal Current Visit: Yes Status: Chronic (2) Marijuana dependence Current Visit: Yes Status: Chronic (3) Nicotine dependence Current Visit: Yes Status: Acute Qualifiers: Nicotine product type: cigarettes Substance use status: in withdrawal Qualified Code(s): F17.213 - Nicotine dependence, cigarettes, with withdrawal (4) Asthma Current Visit: Yes Status: Chronic (5) Hypertension Current Visit: Yes Status: Chronic Qualifiers: Hypertension type: essential hypertension Qualified Code(s): I10 - Essential (primary) hypertension (6) Obesity (BMI 30.0-34.9) Current Visit: Yes Status: Chronic (7) Opiate abuse, episodic Current Visit: Yes Status: Chronic Cleared for Admission [facility] - Detox or Rehab [facility] Level of Care: Medically Managed Detox Regimen/Protocol: Librium Breathalyzer - Breathalyzer Breathalyzer: 0 Urine Drug Screen - Test Device Lot number: [id number] Expiration date: 06/09/20 - Control Is test valid?: Yes - Results Drug screen NEGATIVE: No Urine drug screen results: THC-Marijuana Inpatient Rehab Admission - Rehab Decision to Admit Inpatient rehab admission?: No
[2018-09-10] MEDS ORDERED: MAGNESIUM CITRATE 300 ML BOTTLE PO PRN (09:31)
[2018-09-10] MEDS ORDERED: IBUPROFEN 400 MG TABLET (FP) PO PRN (09:31)
[2018-09-10] MEDS ORDERED: METHOCARBAMOL 500 MG TABLET PO PRN (09:31)
[2018-09-10] MEDS ORDERED: MAGNESIUM HYDROX 2400MG/30ML ORAL SUSPENSION 30 ML CUP PO PRN (09:31)
[2018-09-10] MEDS ORDERED: MENTHOL/PHENOL 1 EACH UD MM PRN (09:31)
[2018-09-10] MEDS ORDERED: BISMUTH SUBSALICYLATE 524 MG/30 ML UD PO PRN (09:31)
[2018-09-10] MEDS ORDERED: MELATONIN 5 MG TABLETS PO PRN (09:31)
[2018-09-10] MEDS ORDERED: chlordiazePOXIDE HCL 25 MG CAPSULE PO PRN (09:31)
[2018-09-10] MEDS ORDERED: ACETAMINOPHEN 325 MG TABLET (FP) PO PRN (09:31)
[2018-09-10] MEDS ORDERED: hydrOXYzine PAMOATE 25 MG CAPSULE (FP) PO PRN (09:31)
[2018-09-10] MEDS ORDERED: MAG HYDROX/AL HYDROX/SIMETH 30 ML UNIT-DOSE CUP PO PRN (09:31)
[2018-09-10] MEDS ORDERED: ALBUTEROL SO4 8 GM HFA INHALER IH PRN (09:32)
[2018-09-10] MEDS ORDERED: chlordiazePOXIDE HCL 25 MG CAPSULE PO ONE (10:30)
[2018-09-10] MEDS: chlordiazePOXIDE HCL 25 MG CAPSULE PO SCH ×3 (10:37→23:08)
[2018-09-10] MEDS: PRENATAL VITAMINS W/ FOLIC ACID TABLET (FP) PO SCH (10:38)
[2018-09-10] MEDS: LISINOPRIL 10 MG TABLET (FP) PO SCH (10:38)
[2018-09-10] MEDS: HYDROCHLOROTHIAZIDE 12.5 MG CAPSULE (FP) PO SCH (10:38)
[2018-09-10 12:39] LABS: HEMATOCRIT 40.5 % (35.4-49); HEMOGLOBIN 13.2 GM/dL (11.7-16.9); MCHC 32.6 g/dl (32.0-35.9); MEAN PLT VOLUME 10.8 fl (7.5-11.1); PLATELET COUNT 154 K/MM3 (134-434); RBC 4.55 M/mm3 (4.00-5.60); RDW 13.7 % (11.9-15.9); WHITE BLOOD COUNT 5.4 K/mm3 (4.0-10.0)
[2018-09-10 12:56] LABS: ALBUMIN 3.6 g/dl (3.4-5.0); BILIRUBIN,TOTAL 0.2 mg/dL (0.2-1); CALCIUM 9.1 mg/dL (8.5-10.1); CREATININE 1.2 mg/dL (0.55-1.3); POTASSIUM 3.8 mmol/L (3.5-5.1)
[2018-09-10] MEDS: THIAMINE HCL 100 MG TABLET (FP) PO SCH (23:08)
[2018-09-11] MEDS: chlordiazePOXIDE HCL 25 MG CAPSULE PO SCH ×4 (05:40→22:28)
[2018-09-11] MEDS: PRENATAL VITAMINS W/ FOLIC ACID TABLET (FP) PO SCH (10:45)
[2018-09-11] MEDS: LISINOPRIL 10 MG TABLET (FP) PO SCH (10:46)
[2018-09-11] MEDS: HYDROCHLOROTHIAZIDE 12.5 MG CAPSULE (FP) PO SCH (10:46)
--- NOTE | 2018-09-11 15:46 | PN ---
S CIWA - CIWA Score Nausea/Vomitin Muscle Tremors: 3 Anxiety: 3 Agitation: 2 Paroxysmal Sweats: 3 Orientation: 0-Oriented Tacttile Disturbances: 0-None Auditory Disturbances: 0-None Visual Disturbances: 0-None Headache: 0-None Present CIWA-Ar Total Score: 13 [facility] Progress Note (SOAP) Subjective: nausea shakes sweats sleep disturbance Objective: 09/11/18 15:47 A & O x 3 tremors noted not in acute distress Vital Signs Temperature 97.2 F L 09/11/18 14:08 Pulse Rate 79 09/11/18 14:08 Respiratory Rate 20 09/11/18 14:08 Blood Pressure 116/80 09/11/18 14:08 O2 Sat by Pulse Oximetry (%) Laboratory Last Values WBC 5.4 K/mm3 (4.0-10.0) 09/10/18 09:35 RBC 4.55 M/mm3 (4.00-5.60) 09/10/18 09:35 Hgb 13.2 GM/dL (11.7-16.9) 09/10/18 09:35 Hct 40.5 % (35.4-49) 09/10/18 09:35 MCV 89.0 fl (80-96) 09/10/18 09:35 MCH 29.0 pg (25.7-33.7) 09/10/18 09:35 MCHC 32.6 g/dl (32.0-35.9) 09/10/18 09:35 RDW 13.7 % (11.9-15.9) 09/10/18 09:35 Plt Count 154 K/MM3 (134-434) 09/10/18 09:35 MPV 10.8 fl (7.5-11.1) D 09/10/18 09:35 Sodium 140 mmol/L (136-145) 09/10/18 09:35 Potassium 3.8 mmol/L (3.5-5.1) 09/10/18 09:35 Chloride 106 mmol/L (98-107) 09/10/18 09:35 Carbon Dioxide 24 mmol/L (21-32) 09/10/18 09:35 Anion Gap 10 MMOL/L (8-16) 09/10/18 09:35 BUN 24 mg/dL (7-18) H 09/10/18 09:35 Creatinine 1.2 mg/dL (0.55-1.3) 09/10/18 09:35 Est GFR (CKD-EPI)AfAm 81.80 09/10/18 09:35 Est GFR (CKD-EPI)NonAf 70.58 09/10/18 09:35 Random Glucose 97 mg/dL (74-106) 09/10/18 09:35 Calcium 9.1 mg/dL (8.5-10.1) 09/10/18 09:35 Total Bilirubin 0.2 mg/dL (0.2-1) 09/10/18 09:35 AST 32 U/L (15-37) 09/10/18 09:35 ALT 42 U/L (13-61) 09/10/18 09:35 Alkaline Phosphatase 88 U/L (45-117) 09/10/18 09:35 Total Protein 8.0 g/dl (6.4-8.2) 09/10/18 09:35 Albumin 3.6 g/dl (3.4-5.0) 09/10/18 09:35 RPR Titer Nonreactive (NONREACTIVE) 09/10/18 09:35 labs noted Assessment: 09/11/18 15:48 withdrawal sx Plan: continue detox
[2018-09-11 18:18] VITALS: BP 129/85; PULSE 62; TEMP 97.7
[2018-09-11] MEDS: THIAMINE HCL 100 MG TABLET (FP) PO SCH (22:27)
--- NOTE | 2018-09-11 23:33 | DS ---
[facility] Detox Discharge Summary Admission Date: 09/10/18 Discharge Date: 09/11/18 - History Present History: Alcohol Dependence, Opioid Dependence (ABUSE, EPISODIC) Additional Comments: INFORMED CLIENT LEFT UNIT AMA. CLIENT WAS NOT AVAILABLE TO MEET WITH PROVIDER Pertinent Past History: WITHDRAWAL SX'S Laboratory Tests 09/10/18 09/10/18 09/10/18 09:35 09:35 09:35 WBC 5.4 RBC 4.55 Hgb 13.2 Hct 40.5 MCV 89.0 MCH 29.0 MCHC 32.6 RDW 13.7 Plt Count 154 MPV 10.8 D Sodium 140 Potassium 3.8 Chloride 106 Carbon Dioxide 24 Anion Gap 10 BUN 24 H Creatinine 1.2 Est GFR (CKD-EPI)AfAm 81.80 Est GFR (CKD-EPI)NonAf 70.58 Random Glucose 97 Calcium 9.1 Total Bilirubin 0.2 AST 32 ALT 42 Alkaline Phosphatase 88 Total Protein 8.0 Albumin 3.6 RPR Titer Nonreactive - Physical Exam Results Vital Signs: Vital Signs Temperature 97.7 F 09/11/18 18:11 Pulse Rate 62 09/11/18 18:11 Respiratory Rate 17 09/11/18 18:11 Blood Pressure 129/85 09/11/18 18:11 O2 Sat by Pulse Oximetry (%) Pertinent Admission Physical Exam Findings: ASTHMA HTN OBESITY OPIOID ABUSE - Treatment Hospital Course: Discharged Condition Good ( PER NURSING STAFF) - Medication Discharge Medications: Ambulatory Orders Lisinopril/Hydrochlorothiazide [Lisinopril-Hctz 20-12.5 mg Tab] 1 each PO DAILY 06/10/18 Albuterol Sulfate Inhaler - [Ventolin HFA Inhaler -] 2 inh IH Q4H PRN #1 inhaler 06/12/18 - Diagnosis (1) Nicotine dependence Status: Chronic Qualifiers: Nicotine product type: cigarettes Substance use status: in withdrawal Qualified Code(s): F17.213 - Nicotine dependence, cigarettes, with withdrawal (2) Alcohol dependence with uncomplicated withdrawal Status: Acute (3) Asthma Status: Chronic (4) Hypertension Status: Chronic Qualifiers: Hypertension type: essential hypertension Qualified Code(s): I10 - Essential (primary) hypertension (5) Obesity (BMI 30.0-34.9) Status: Chronic (6) Opiate abuse, episodic Status: Chronic - AMA Did Patient Leave Against Medical Advice: Yes
[2018-09-12] MEDS ORDERED: chlordiazePOXIDE HCL 10 MG CAPSULE PO PRN (11:00)
[2018-09-12] MEDS ORDERED: chlordiazePOXIDE HCL 10 MG CAPSULE PO SCH (11:00)
[2018-09-13] MEDS ORDERED: chlordiazePOXIDE HCL 10 MG CAPSULE PO SCH (11:00)
== END 2018-09-11 21:02 | disposition home or self-care (01) | DRG 773 ==
LOC: YASAS 08:11 → Y3N 09:35
PROVIDERS: ADMIT Surgery; ATTEND Surgery
PROC: HZ2ZZZZ Detoxification Services for Substance Abuse Treatment (ICD-10-PCS; principal; 2018-09-10)
DX: F10.230 Alcohol dependence with withdrawal, uncomplicated (principal); F11.10 Opioid abuse, uncomplicated; F12.20 Cannabis dependence, uncomplicated; F17.213 Nicotine dependence, cigarettes, with withdrawal; I10 Essential (primary) hypertension; J45.909 Unspecified asthma, uncomplicated; E66.9 Obesity, unspecified; Z68.33 Body mass index [BMI] 33.0-33.9, adult; R94.5 Abnormal results of liver function studies; Z89.021 Acquired absence of right finger(s)
CPT/HCPCS: 36415; 80053; 85027; 86593

== ENCOUNTER 2018-12-06 08:13 | Inpatient (IN) | payer OTHER ==
[2018-12-06 08:42] VITALS: BMI 32.8
--- NOTE | 2018-12-06 09:24 | HP ---
CIWA Score Nausea/Vomitin Muscle Tremors: 3 Anxiety: 3 Agitation: 3 Paroxysmal Sweats: 2 Orientation: 2-Disoriented Date<2 days Tacttile Disturbances: 1-Very Mild Itch/Numbness Auditory Disturbances: 0-None Visual Disturbances: 0-None Headache: 2-Mild CIWA-Ar Total Score: 18 - Admission Criteria OASAS Guidelines: Admission for Medically Managed Detox: Requires at least one of the followin. CIWA greater than 12 2. Seizures within the past 24 hours 3. Delirium tremens within the past 24 hours 4. Hallucinations within the past 24 hours 5. Acute intervention needed for co occurring medical disorder 6. Acute intervention needed for co occurring psychiatric disorder 7. Severe withdrawal that cannot be handled at a lower level of care (continued vomiting, continued diarrhea, abnormal vital signs) requiring intravenous medication and/or fluids 8. Admission ROS S - HPI Chief Complaint: " I am trying to get sober again. I'm turning 48 and I'm trying to put this behind me." Allergies/Adverse Reactions: Allergies Allergy/AdvReac Type Severity Reaction Status Date / Time No Known Allergies Allergy Verified 12/06/18 08:31 History of Present Illness: Patient is a black male 48 year old with history of alcohol dependence. He was last here about 6 months ago and completed detox. He had a period of 6 month sobriety but then relapsed due to family pressure. Patient is using 1/4 liter of Monika, Vodka and Rum for the last 3 weeks. He had a blackout last week in his backyard and was out for 12 hours. He also uses heroin sporadically. Last used 4 days ago 5 bags. Last 3 weeks he has used 5 bags/day 3 times per week. He also uses marijuana 2-3 times per week. He smokes about 4 blunts per episode. PMH: Asthma, HTN Psurg Hx: None except right index finger amputation Meds: Lisinopril 10 mg daily, Albuterol MDI and Beclomethasone. Occasional bursts of oral steroids on exacerbation of asthma. Psych Hx: H/O Depression but not on meds. He denies suicidal ideation or plans at this time. Exam Limitations: No Limitations - Ebola screening Have you traveled outside of the country in the last 21 days: No Have you had contact with anyone from an Ebola affected area: No Have you been sick,other than usual withdrawal symptoms: No Do you have a fever: No - Review of Systems Constitutional: Diaphoresis EENT: reports: No Symptoms Reported Respiratory: reports: No Symptoms reported Cardiac: reports: No Symptoms Reported GI: reports: Indigestion, Abdominal cramping : reports: No Symptoms Reported Musculoskeletal: reports: Muscle Pain Integumentary: reports: No Symptoms Reported Neuro: reports: No Symptoms reported Endocrine: reports: No Symptoms Reported Hematology: reports: No Symptoms Reported Psychiatric: reports: Agitated, Anxious Other Systems: Reviewed and Negative Patient History - Patient Medical History Hx Anemia: No Hx Asthma: Yes (on albuterol inhaler) Hx Chronic Obstructive Pulmonary Disease (COPD): No Hx Cancer: No Hx Cardiac Disorders: No Hx Congestive Heart Failure: No Hx Hypertension: Yes (lisinopril) Hx Hypercholesterolemia: No Hx Pacemaker: No HX Cerebrovascular Accident: No Hx Seizures: No Hx Dementia: No Hx Diabetes: No Hx Gastrointestinal Disorders: No Hx Liver Disease: No (elevated LFTs due to alcohol) Hx Genitourinary Disorders: No Hx Sexually Transmitted Disorders: No Hx Renal Disease (ESRD): No Hx Thyroid Disease: No Hx Human Immunodeficiency Virus (HIV): No (2018 negative) Hx Hepatitis C: No Hx Depression: Yes (no med, never hospitalized) Hx Suicide Attempt: No Hx Bipolar Disorder: No Hx Schizophrenia: No - Patient Surgical History Past Surgical History: No Hx Neurologic Surgery: No Hx Cataract Extraction: No Hx Cardiac Surgery: No Hx Lung Surgery: No Hx Breast Surgery: No Hx Breast Biopsy: No Hx Abdominal Surgery: No Hx Appendectomy: No Hx Cholecystectomy: No Hx Genitourinary Surgery: No Hx Section: No Hx Orthopedic Surgery: Yes (traumatic amputation of right index in 1982) Anesthesia Reaction: No - PPD History Previous Implant?: Yes Documented Results: Negative w/proof Implanted On Prior [facility] Admission?: Yes Date: 09/12/18 Results: 0 mm PPD to be Administered?: No - Smoking Cessation Smoking history: Current every day smoker Have you smoked in the past 12 months: Yes Aproximately how many cigarettes per day: 7 Cigars Per Day: 0 Hx Chewing Tobacco Use: No Initiated information on smoking cessation: Yes 'Breaking Loose' booklet given: 12/06/18 - Substance & Tx. History Hx Alcohol Use: Yes (hard liquor see history) Hx Substance Use: Yes Substance Use Type: Heroin, Marijuana - Substances abused Alcohol Substance route: Oral Frequency: Daily Amount used: 2 pints vodka, 50 oz hennesay, 1 pint of rumt Age of first use: 22 Date of last use: 12/05/18 Heroin Substance route: Inhalation Frequency: Daily Amount used: 5 bags Age of first use: 22 Date of last use: 12/05/18 Marijuana/Hashish Substance route: Smoking Frequency: 3-6 times per week Amount used: 5 blunt Age of first use: 22 Date of last use: 12/05/18 Family Disease History - Family Disease History Family Disease History: Heart Disease: Father (living, alcohol,sober), Mother ( living, htn, ), Other: Mother Admission Physical Exam [facility] - Vital Signs Vital Signs: Vital Signs - 24 hr 12/06/18 12/06/18 08:32 09:11 Temperature 97.2 F L 97.2 F L Pulse Rate 98 H 98 H Respiratory 18 18 Rate Blood Pressure 162/98 162/98 Cleared for Admission [facility] - Detox or Rehab [facility] Level of Care: Medically Managed Detox Regimen/Protocol: Librium Screened but not Admitted - Documentation of Visit Screened but not Admitted: No Breathalyzer - Breathalyzer Breathalyzer: 0.042 Vital Signs - Vital Signs Vital signs refused: No Temperature: 97.2 F Temperature source: Oral Pulse Rate: 98 Respiratory Rate: 20 Blood Pressure: 162/98 BP Location: Left Arm Blood Pressure position: Sitting - Height Height: 5 ft 6 in - Weight Weight: 203 lb Weight measurement method: Standing scale - BMI Body Mass Index (BMI): 32.8 - Bowel Function Bowel Movement: No Urine Drug Screen - Test Device Lot number: [id number] Expiration date: 09/09/20 - Control Is test valid?: Yes - Results Drug screen NEGATIVE: No Urine drug screen results: THC-Marijuana Inpatient Rehab Admission - Rehab Decision to Admit Inpatient rehab admission?: No
[2018-12-06] MEDS ORDERED: ACETAMINOPHEN 325 MG TABLET (FP) PO PRN ×2 (09:31)
[2018-12-06] MEDS ORDERED: MELATONIN 5 MG TABLETS PO PRN (09:31)
[2018-12-06] MEDS ORDERED: MENTHOL/PHENOL 1 EACH UD MM PRN (09:31)
[2018-12-06] MEDS ORDERED: MAGNESIUM HYDROX 2400MG/30ML ORAL SUSPENSION 30 ML CUP PO PRN (09:31)
[2018-12-06] MEDS ORDERED: MAGNESIUM CITRATE 300 ML BOTTLE PO PRN (09:31)
[2018-12-06] MEDS ORDERED: hydrOXYzine PAMOATE 25 MG CAPSULE (FP) PO PRN (09:31)
[2018-12-06] MEDS ORDERED: IBUPROFEN 400 MG TABLET (FP) PO PRN (09:31)
[2018-12-06] MEDS ORDERED: METHOCARBAMOL 500 MG TABLET PO PRN (09:31)
[2018-12-06] MEDS ORDERED: chlordiazePOXIDE HCL 25 MG CAPSULE PO PRN (09:31)
[2018-12-06] MEDS ORDERED: MAG HYDROX/AL HYDROX/SIMETH 30 ML UNIT-DOSE CUP PO PRN (09:31)
[2018-12-06] MEDS ORDERED: BISMUTH SUBSALICYLATE 262 MG/15 ML BTL PO PRN (09:31)
[2018-12-06] MEDS ORDERED: ALBUTEROL SO4 8 GM HFA INHALER IH PRN (09:35)
[2018-12-06] MEDS ORDERED: PATIENT'S OWN MEDICATION (NON-FORMULARY) (Lisinopril/Hydrochlorothiazide [Lisinopril-Hctz PO SCH (10:00)
[2018-12-06] MEDS: chlordiazePOXIDE HCL 25 MG CAPSULE PO SCH ×3 (10:49→23:53)
[2018-12-06] MEDS: LISINOPRIL 20 MG TABLET (FP) PO SCH (10:49)
[2018-12-06] MEDS: PRENATAL VITAMINS W/ FOLIC ACID TABLET (FP) PO SCH (10:49)
[2018-12-06] MEDS: HYDROCHLOROTHIAZIDE 12.5 MG CAPSULE (FP) PO SCH (10:49)
[2018-12-06 14:29] LABS: HEMATOCRIT 37.8 % (35.4-49); HEMOGLOBIN 12.4 GM/dL (11.7-16.9); MCH 28.8 pg (25.7-33.7); MCHC 32.9 g/dl (32.0-35.9); MEAN CELL VOLUME 87.6 fl (80-96); MEAN PLT VOLUME 11.3 fl (7.5-11.1); PLATELET COUNT 156 K/MM3 (134-434); RBC 4.32 M/mm3 (4.00-5.60); RDW 14.3 % (11.9-15.9); WHITE BLOOD COUNT 6.3 K/mm3 (4.0-10.0)
[2018-12-06 14:49] LABS: ALBUMIN 3.4 g/dl (3.4-5.0); BILIRUBIN,TOTAL 0.4 mg/dL (0.2-1); BLOOD UREA NITROGEN 20.6 mg/dL (7-18); CALCIUM 8.8 mg/dL (8.5-10.1); POTASSIUM 3.8 mmol/L (3.5-5.1); TOT PROT 7.8 g/dl (6.4-8.2)
[2018-12-06] MEDS: THIAMINE HCL 100 MG TABLET (FP) PO SCH (23:56)
[2018-12-07] MEDS: chlordiazePOXIDE HCL 25 MG CAPSULE PO SCH ×2 (06:30→10:13)
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
[2018-12-07] MEDS: PRENATAL VITAMINS W/ FOLIC ACID TABLET (FP) PO SCH (10:13)
[2018-12-07] MEDS: LISINOPRIL 20 MG TABLET (FP) PO SCH (10:13)
[2018-12-07] MEDS: HYDROCHLOROTHIAZIDE 12.5 MG CAPSULE (FP) PO SCH (10:13)
[2018-12-07] MEDS ORDERED: MELATONIN 5 MG TABLETS PO PRN (10:37)
--- NOTE | 2018-12-07 10:41 | PN ---
S CIWA - CIWA Score Nausea/Vomitin Muscle Tremors: 2 Anxiety: 3 Agitation: 3 Paroxysmal Sweats: 1-Minimal Palms Moist Orientation: 0-Oriented Tacttile Disturbances: 0-None Auditory Disturbances: 0-None Visual Disturbances: 0-None Headache: 2-Mild CIWA-Ar Total Score: 13 S Progress Note (SOAP) Subjective: alert,irritable,anxious,interrupted sleep,tremor,pain in the body and back Objective: 12/07/18 10:36 Vital Signs Temperature 98.0 F 12/07/18 09:21 Pulse Rate 75 12/07/18 09:21 Respiratory Rate 18 12/07/18 09:21 Blood Pressure 128/73 12/07/18 09:21 O2 Sat by Pulse Oximetry (%) 12/07/18 10:37 Laboratory Last Values WBC 6.3 K/mm3 (4.0-10.0) 12/06/18 09:40 RBC 4.32 M/mm3 (4.00-5.60) 12/06/18 09:40 Hgb 12.4 GM/dL (11.7-16.9) 12/06/18 09:40 Hct 37.8 % (35.4-49) 12/06/18 09:40 MCV 87.6 fl (80-96) 12/06/18 09:40 MCH 28.8 pg (25.7-33.7) 12/06/18 09:40 MCHC 32.9 g/dl (32.0-35.9) 12/06/18 09:40 RDW 14.3 % (11.9-15.9) 12/06/18 09:40 Plt Count 156 K/MM3 (134-434) 12/06/18 09:40 MPV 11.3 fl (7.5-11.1) H 12/06/18 09:40 Sodium 140 mmol/L (136-145) 12/06/18 09:40 Potassium 3.8 mmol/L (3.5-5.1) 12/06/18 09:40 Chloride 106 mmol/L (98-107) 12/06/18 09:40 Carbon Dioxide 23 mmol/L (21-32) 12/06/18 09:40 Anion Gap 10 MMOL/L (8-16) 12/06/18 09:40 BUN 20.6 mg/dL (7-18) H 12/06/18 09:40 Creatinine 1.0 mg/dL (0.55-1.3) 12/06/18 09:40 Est GFR (CKD-EPI)AfAm 101.26 12/06/18 09:40 Est GFR (CKD-EPI)NonAf 87.37 12/06/18 09:40 Random Glucose 105 mg/dL (74-106) 12/06/18 09:40 Calcium 8.8 mg/dL (8.5-10.1) 12/06/18 09:40 Total Bilirubin 0.4 mg/dL (0.2-1) 12/06/18 09:40 AST 153 U/L (15-37) H 12/06/18 09:40 ALT 313 U/L (13-61) H 12/06/18 09:40 Alkaline Phosphatase 96 U/L (45-117) 12/06/18 09:40 Total Protein 7.8 g/dl (6.4-8.2) 12/06/18 09:40 Albumin 3.4 g/dl (3.4-5.0) 12/06/18 09:40 Assessment: 12/07/18 10:38 withdrawal symptom Plan: [id number],alt [id number],patient is on librium regimen,will change regimen to ativan, repeat alt,ast,inr in am
[2018-12-07] MEDS ORDERED: LORazepam 1 MG TABLET PO PRN (10:58)
[2018-12-07] MEDS: LORazepam 2 MG TABLET PO SCH ×3 (11:27→22:40)
[2018-12-07] MEDS ORDERED: SUVOREXANT 10 MG TABLET PO PRN (22:00)
[2018-12-07] MEDS: THIAMINE HCL 100 MG TABLET (FP) PO SCH (22:40)
[2018-12-08] MEDS ORDERED: chlordiazePOXIDE HCL 25 MG CAPSULE PO SCH (05:00)
[2018-12-08] MEDS: LORazepam 2 MG TABLET PO SCH ×4 (06:08→22:37)
[2018-12-08] MEDS: PRENATAL VITAMINS W/ FOLIC ACID TABLET (FP) PO SCH (10:46)
[2018-12-08] MEDS: LISINOPRIL 20 MG TABLET (FP) PO SCH (10:46)
[2018-12-08] MEDS: HYDROCHLOROTHIAZIDE 12.5 MG CAPSULE (FP) PO SCH (10:46)
--- NOTE | 2018-12-08 10:57 | PN ---
S CIWA - CIWA Score Nausea/Vomitin Muscle Tremors: 2 Anxiety: 2 Agitation: 2 Paroxysmal Sweats: No Perspiration Orientation: 0-Oriented Tacttile Disturbances: 1-Very Mild Itch/Numbness Auditory Disturbances: 0-None Visual Disturbances: 0-None Headache: 2-Mild CIWA-Ar Total Score: 11 [facility] Progress Note (SOAP) Subjective: alert,irritable,anxious,interrupted sleep,aching pain Objective: 12/08/18 10:57 Vital Signs Temperature 97.7 F 12/08/18 09:34 Pulse Rate 78 12/08/18 09:34 Respiratory Rate 18 12/08/18 09:34 Blood Pressure 115/75 12/08/18 09:34 O2 Sat by Pulse Oximetry (%) Assessment: 12/08/18 10:58 withdrawal symptom Plan: continue detox ativan regimen,alt,ast,inr pending
[2018-12-08 14:34] LABS: INR 1.05 (0.83-1.09); PROTHROMBIN TIME (PATIENT) 12.4 SEC (9.7-13.0)
[2018-12-08 14:40] LABS: SGOT/AST 151 U/L (15-37); SGPT/ALT 301 U/L (13-61)
[2018-12-08] MEDS: THIAMINE HCL 100 MG TABLET (FP) PO SCH (22:37)
[2018-12-09] MEDS ORDERED: chlordiazePOXIDE HCL 10 MG CAPSULE PO PRN
[2018-12-09] MEDS ORDERED: LORazepam 1 MG TABLET PO SCH (05:00)
[2018-12-09] MEDS ORDERED: chlordiazePOXIDE HCL 10 MG CAPSULE PO SCH (05:00)
[2018-12-09 07:08] VITALS: BP 98/62; PULSE 74; TEMP 97.5
--- NOTE | 2018-12-09 09:14 | PN ---
[facility] Progress Note Note: I t was announced to marine underwriter that pt was found to be running around the unit and jumping rope which he found and or created. Pt then became upset and decided to sign out AMA. pt refused to speak with medical provider and or wait for our arrival. security and nursing terrazzo supervisor involved in the decision making for this patient and pt insisted on signing out AMA. pt was removed from unit by security.
--- NOTE | 2018-12-09 09:15 | DS ---
[facility] Detox Discharge Summary Admission Date: 12/06/18 - History Present History: Alcohol Dependence, Cannabis Dependence, Opioid Dependence - Physical Exam Results Vital Signs: Vital Signs Temperature 97.5 F L 12/09/18 06:00 Pulse Rate 74 12/09/18 06:00 Respiratory Rate 20 12/09/18 06:00 Blood Pressure 98/62 12/09/18 06:00 O2 Sat by Pulse Oximetry (%) - Treatment Hospital Course: Discharged Condition Good Patient has Accepted a Rehab Referral to: referral provided - Medication Discharge Medications: Ambulatory Orders Lisinopril/Hydrochlorothiazide [Lisinopril-Hctz 20-12.5 mg Tab] 1 each PO DAILY 06/10/18 Albuterol Sulfate Inhaler - [Ventolin HFA Inhaler -] 2 inh IH Q4H PRN #1 inhaler 06/12/18 - Diagnosis (1) Alcohol dependence with uncomplicated withdrawal Status: Chronic (2) Cannabis dependence Status: Chronic (3) Depression Status: Acute (4) Opioid dependence Status: Chronic Qualifiers: Substance use status: uncomplicated Qualified Code(s): F11.20 - Opioid dependence, uncomplicated (5) Substance induced mood disorder Status: Acute (6) Substance-induced sleep disorder Status: Acute (7) Asthma Status: Chronic Qualifiers: Asthma severity: mild Asthma persistence: unspecified Asthma complication type: unspecified Qualified Code(s): J45.909 - Unspecified asthma , uncomplicated (8) Hypertension Status: Chronic Qualifiers: Hypertension type: essential hypertension Qualified Code(s): I10 - Essential (primary) hypertension (9) Nicotine dependence Status: Chronic Qualifiers: Nicotine product type: cigarettes Substance use status: uncomplicated Qualified Code(s): F17.210 - Nicotine dependence, cigarettes, uncomplicated (10) Obesity (BMI 30.0-34.9) Status: Chronic (11) PTSD (post-traumatic stress disorder) Status: Chronic (12) Drug-induced mood disorder Status: Suspected - AMA Did Patient Leave Against Medical Advice: Yes
[2018-12-10] MEDS ORDERED: LORazepam 0.5 MG TABLET PO PRN
[2018-12-10] MEDS ORDERED: chlordiazePOXIDE HCL 10 MG CAPSULE PO SCH (05:00)
[2018-12-10] MEDS ORDERED: LORazepam 0.5 MG TABLET PO SCH (05:00)
[2018-12-11] MEDS ORDERED: chlordiazePOXIDE HCL 10 MG CAPSULE PO ONE (05:00)
[2018-12-11] MEDS ORDERED: LORazepam 0.5 MG TABLET PO ONE (05:00)
== END 2018-12-09 07:47 | disposition left against medical advice (07) | DRG 770 ==
LOC: YASAS 08:13 → Y6N 10:13
PROVIDERS: ADMIT Surgery; ATTEND Surgery
PROC: HZ2ZZZZ Detoxification Services for Substance Abuse Treatment (ICD-10-PCS; principal; 2018-12-06)
DX: F11.23 Opioid dependence with withdrawal (principal); F10.230 Alcohol dependence with withdrawal, uncomplicated; F12.20 Cannabis dependence, uncomplicated; F17.210 Nicotine dependence, cigarettes, uncomplicated; F19.24 Other psychoactive substance dependence with psychoactive substance-induced mood disorder; F19.282 Other psychoactive substance dependence with psychoactive substance-induced sleep disorder; F32.9 Major depressive disorder, single episode, unspecified; F43.10 Post-traumatic stress disorder, unspecified; I10 Essential (primary) hypertension; J45.909 Unspecified asthma, uncomplicated; E66.9 Obesity, unspecified; Z68.32 Body mass index [BMI] 32.0-32.9, adult; Z89.021 Acquired absence of right finger(s)
CPT/HCPCS: 36415; 80053; 84450; 84460; 85027; 85610; 86593